=== PATIENT | male | born 1965 | race Caucasian/White ===

== ENCOUNTER → 2016-10-25 | Outpatient (CLI) | payer OTHER ==
[~2016-10-25] MED LIST: ALDACTONE25 MG PO; ASPIRIN ADULT L81 M1 PO; CATAPRES-TTS 10.1 MG PO; CEFUROXIME AXE250 MG PO; CIPRO500 MG PO; CLONIDINE0.2 MG PO; COREG25 MG PO; COUMADIN5 M2 PO; Catapres-Tts 10.1 MG PO; ELIQUIS5 M1 PO; GLYBURIDE5 MG PO; HYDRALAZINE HYD50 MG PO; IMDUR SA60 M1 PO; LANOXIN0.125 MG PO; LANOXIN0.25 MG PO; LANTUS100 U/ML SC; LASIX20 MG PO; LASIX40 MG PO; LOPRESSOR25 MG PO; LOPRESSOR50 MG PO; MEDI-FIRST ASP325 MG PO; METOPROLOL50 MG PO; NORVASC2.5 MG PO; PRADAXA150 MG PO; PRINIVIL5 MG PO; TOPROL XL100 MG PO; TOPROL XL50 M1 PO; VALIUM10 MG PO; VICO75300 PO; VICODIN 5/500 505 MG PO; VITAMIN D50000 I2 PO; XARELTO10 PO; ZESTRIL40 MG; ZESTRIL40 MG PO
[2016-10-25 13:15] LABS: HEMOGLOBIN 15.2 g/dl (14.0-18.0); MEAN CORPUSCULAR HGB 29.1 pg (27.0-31.0); MEAN CORPUSCULAR HGB CONC 33.8 g/dl (33.0-37.0); MEAN PLATELET VOLUME 10.6 fl (9.6-12.3); PLATELET COUNT AUTOMATED 140 10*3/uL (130-400); RED BLOOD COUNT 5.23 10*6/uL (4.50-5.90); RED CELL DISTRI WIDTH 14.9 % (0-14.5)
[2016-10-25 13:34] LABS: BASOPHIL # 0.3 10*3/uL (0-0.1); BASOPHILS 2 % (0-1); EOSINOPHIL # 0.1 10*3/uL (0-0.4); EOSINOPHILS 1 % (1-4); LYMPHOCYTE # 1.2 10*3/uL (1.3-4.4); MONOCYTE # 0.9 10*3/uL (0.1-1.0); NEUTROPHIL # 10.5 10*3/uL (2.3-7.9); NEUTROPHILS 81 % (47-73); PLATELET SUFFICIENCY NORMAL (NORMAL); ROULEAUX SLIGHT; TOTAL CELLS COUNTED 100 #CELLS
[2016-10-26 06:16] LABS: TOTAL PROTEIN, SERUM 7.6 g/dL (6.0-8.5)
[2016-10-26 15:09] LABS: A/G RATIO 0.9 (0.7-1.7); ALBUMIN 3.7 g/dL (2.9-4.4); ALPHA-1-GLOBULIN 0.2 g/dL (0.0-0.4); BETA GLOBULIN 1.5 g/dL (0.7-1.3); GAMMA GLOBULIN 1.5 g/dL (0.4-1.8); GLOBULIN, TOTAL 3.9 g/dL (2.2-3.9); M-SPIKE Not Observed g/dL (Not Observed)
[2016-10-26 16:11] LABS: ALBUMIN, URINE 65.8 % (.); GAMMA GLOBULIN, URINE 14.4 % (.); M-SPIKE, % Not Observed % (Not Observed)
[2016-10-26 17:13] LABS: HLA CLASS 1 ANTIBODY Negative (Negative); IIb/IIIa ANTIBODY Negative (Negative); Ia/IIa ANTIBODY Positive (Negative)
[2016-10-28 17:09] LABS: PLT ASSOCIATED ANTI-la/lla Negative (Negative); PLT ASSOCIATED ANTI-llb/llla Negative (Negative)
== END | disposition home or self-care (01) ==
LOC: LAB 12:38
PROVIDERS: Internal Medicine Hematology & Oncology
DX: D69.6 Thrombocytopenia, unspecified (principal)

== ENCOUNTER 2016-11-22 18:50 | Inpatient (IN) | payer OTHER ==
[~2016-11-22] VITALS: Ht 187.9 cm; Wt 115.8 kg
[2016-11-22] VITALS (7 sets, daily range): BP systolic 122–166; BP diastolic 66–91
--- NOTE | ~2016-11-22 | PR ---
[place], [place] PROGRESS NOTE NAME: NATASHA FERRARO UNIT #: [id number] ROOM: 520 DOCTOR: DINORA GUILLEN MD BIRTHDATE: [birth year] DOS: SUBJECTIVE: The patient is quite sleepy this morning. He states that he did not get much rest, appears to mildly short of breath. OBJECTIVE: VITAL SIGNS: Graphic trend shows a pressure of 112/64, pulse of 66, respirations 18, temperature 98.2, T-max of 102.9 yesterday at 4:00 in the evening. LUNGS: Diminished breath sounds. No wheezes heard. HEART: Irregular heart rate in the 80s-90s. ABDOMEN: Obese. EXTREMITIES: Without any edema and cold. LABORATORY DATA: This morning shows a BMP, glucose of 379, BUN 41, creatinine 3.10. Sodium 134, potassium 3.7, chloride 100, bicarbonate 22. WBC count is 16.6, hemoglobin 12.5, hematocrit 38.6, platelets 110. Blood culture shows gram-negative bacilli, no identification is available. CT of the abdomen and pelvis showed hydronephrosis, bilateral calcification, nonobstructive stones and cholelithiasis. ASSESSMENT AND PLAN: 1. The patient with multiple medical problems. He has chronic atrial fibrillation and severe cardiomyopathy who presents with fever and elevated white cell count with sepsis. Blood cultures now positive for gram-negative bacteria, bacilli and we do not have identification yet. 2. History of mitral valve replacement. The possibility is that he has developed endocarditis. 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 3. Acute kidney injury. His GFR 34 on admission has worsened to 21. So, we will avoid all nephrotoxic medications. Calculate antibiotic dosage according to creatinine clearance. Nephrology consultation will be obtained. 4. Type 2 diabetes mellitus, insulin-dependent, poorly controlled, not very compliant with his diet. His blood sugars have been in the high 300. Adjustments in medications to be made. [place], [place] PROGRESS NOTE NAME: NATASHA FERRARO UNIT #: [id number] ROOM: 520 DOCTOR: DINORA GUILLEN MD BIRTHDATE: [birth year] DINORA GUILLEN MD CM:PNCAMILLA [id number] DINORA GUILLEN MD 11/25/16 1539 interface
--- NOTE | ~2016-11-22 | PR ---
[place], [place] PROGRESS NOTE NAME: NATASHA FERRARO UNIT #: [id number] ROOM: 520 DOCTOR: YENY ALFARO MD BIRTHDATE: [birth year] DOS: 11/26/2016 SUBJECTIVE: The patient was seen in followup of acute kidney injury. His creatinine yesterday did not change, but he had received his lisinopril on the prior to me seeing him. It has since been discontinued as was his diuretics. His blood pressures have not been low anymore and he is now trending up slightly from the 120s to 150s. His heart rate is still periodically elevated. He continues on Toprol, Imdur and his antibiotics are Levaquin and Zosyn. He is no longer on around the clock fluids or receiving any boluses. Again, his last dose of lisinopril 40 was on November 24, and he received his last dose of Motrin on November 23 as well as Aldactone and Lasix on the . His contrast exposure was also on the . OBJECTIVE: VITAL SIGNS: 98.7, 77-115, 22, 150s to 120s over 80s-90s, pulse ox 93% on 3 liters nasal cannula. GENERAL: The patient is chronically ill appearing, older appearing than his stated age, lying comfortably in bed, but deconditioned significantly. He is very weak, cannot stand up without excessive fatigue and shortness of breath, somnolent, but eyes open. He has just come back from a LETTY, so he had some sedative there as well. LUNGS: Decreased breath sounds at the bases. CARDIOVASCULAR: Regular rate, positive murmur, irregular rhythm. ABDOMEN: Soft, colostomy intact, no audible bruits. EXTREMITIES: Without cyanosis or clubbing or significant edema. SKIN: Without diffuse rashes or breakdown. NEUROLOGIC: No asterixis. No cranial nerve abnormalities. LABORATORY DATA AND DIAGNOSTICS: Reviewed in detail. Sodium 141, potassium 3.8, chloride 107, bicarb 24, BUN 38, creatinine 2.29, glucose 75, calcium 8.1, phosphorus 2.6, magnesium 1.9, albumin 2.1. ASSESSMENT AND PLAN: Acute kidney injury. This is likely sepsis mediated acute tubular necrosis with possible contrast induced nephropathy exacerbated by NSAID use, ROBERT inhibitor and diuretics. For now, lisinopril and diuretics have been held, no further NSAIDs have been given and no further contrast has been given. Renal function is returning close to his prior baseline, which was CKD stage 3/4 with a baseline in the low to mid 2s. No further IV fluids are necessary at this time. We will probably resume his diuretics once today and monitor for any hypotension; if possible, then we can restart him on his lisinopril in the next 24 hours or so if labs remain stable. He has mild anemia, which has been fairly stable; diabetes control is coming under much better control and his urinary tract infection, which likely was the etiology of his severe sepsis is being treated with antibiotics, not sure whether he would need both antibiotics at this point, but I will defer to Dr. Sy. LETTY imaging will be followed up. If symptoms or bacteremia recurs, consideration for a HIDA scan given his CT may be a good thing to do because there was some cholelithiasis present as well. [place], [place] PROGRESS NOTE NAME: FERRARONATASHA UNIT #: [id number] ROOM: [facility] DOCTOR: YENY ALFRAO MD BIRTHDATE: [birth year] YENY ALFARO MD CM:PNTRANS [id number] YENY ALFAOR MD 11/26/16 2338 interface
--- NOTE | ~2016-11-22 | CON ---
[place], [place] REPORT OF CONSULTATION NAME: NATASHA FERRARO UNIT #: [id number] ROOM: 520 DOCTOR: SERA WRIGHT MD BIRTHDATE: [birth year] DOS: 11/23/2016 REASON FOR CONSULTATION: Atrial fibrillation with rapid ventricular response. HISTORY OF PRESENT ILLNESS: The patient is a 51-year-old man who does have a complex past medical history. The records are not complete, but the patient tells me that he had a severe infection in 2004. A PICC line was inserted and somehow resulted in damage to his mitral valve. This was replaced in 2004 at the [facility]. The patient has also developed a significant cardiomyopathy, but according to records I do have, this is a nonischemic cardiomyopathy. In another place in the old records, there is a reference to the fact that his mitral valve was replaced for endocarditis. As noted, the initial records are not currently available. In any case, he has had admissions for heart failure as well as atrial fibrillation with rapid ventricular response. The patient states he was doing reasonably well until recently when he began having problems with dysuria. In addition, he started having palpitations and chest discomfort. He also had nausea and vomiting. He came in to the hospital where he was found to be febrile and in atrial fibrillation with a rapid ventricular response. Blood cultures were obtained and thus far two of the blood culture bottles are growing gram-negative rods. We have been controlling his heart rate with diltiazem and he no longer has the chest discomfort, but he still has fever and a high white count. PAST MEDICAL HISTORY: Includes: 1. Hypertension. 2. Bioprosthetic mitral valve replacement done in 2004, apparently for endocarditis. The patient also reportedly had repair of an atrial septal defect during the same operation. 3. Type 2 diabetes mellitus. 4. Permanent atrial fibrillation. 5. Cardiomyopathy, presumed to be nonischemic in origin. 6. Chronic congestive heart failure due to left ventricular systolic and diastolic dysfunction. 7. Chronic renal failure. 8. Chronic elevation of troponin. REVIEW OF SYSTEMS: The patient denies diplopia. He is generally weak, but denies focal weakness. He denies loss of vision or speech. He has had fevers, chills and sweats. He has had nausea and vomiting. He has had a nonproductive cough. He denies hemoptysis or hematemesis. He denies any skin rashes. He has had chest pain as noted above, but this is improving. He denies abdominal pain. He denies change in bowel or bladder habits and denies blood in his stools or urine. He has had peripheral edema. The remainder of the review of systems is negative except as noted above. FAMILY HISTORY: Negative for early coronary disease. [place], [place] REPORT OF CONSULTATION NAME: NATASHA FERRARO UNIT #: [id number] ROOM: [facility] DOCTOR: SERA WRIGHT MD BIRTHDATE: [birth year] MEDICATIONS: Prior to admission, apixaban 5 mg b.i.d., cefuroxime 250 mg tablets b.i.d., clonidine 0.2 mg daily, diazepam 10 mg q. 6 hours p.r.n., digoxin 125 mcg daily, vitamin D2 50,000 units weekly, furosemide 40 mg daily, gabapentin 600 mg t.i.d., hydralazine 100 mg q. 8 hours, isosorbide mononitrate 60 mg daily, lisinopril 40 mg daily, metoprolol 75 mg b.i.d., spironolactone 25 mg daily and insulin, Lantus, 35 units at 5:00 p.m. ALLERGIES: The patient lists allergies to VILLARREAL PEPPERS, BEE STINGS, CODEINE, INFLUENZA VIRUS VACCINE AND PNEUMOCOCCAL VACCINE. SOCIAL HISTORY: The patient is and lives with his . He does not smoke or drink. He is unemployed and disabled. PHYSICAL EXAMINATION: GENERAL: Reveals an overweight white male who appears ill. VITAL SIGNS: Pulse is 100 and irregularly irregular, blood pressure is 138/76. He currently has a temperature of 99.9, but it has been as high as 100.1. HEENT: Normocephalic, atraumatic. Extraocular muscles are intact. Sclerae are clear. There is no scleral icterus or scleral hemorrhage. Pupils are round and reactive to light. The oral mucosa is moist. Tongue is midline. NECK: Supple. He has mild jugular distention with hepatojugular reflux present. Carotids are full and I heard no bruits. He had no neck or supraclavicular masses. LUNGS: Respirations were unlabored. His chest was clear with decreased breath sounds at the bases, but no wheezes or rales. CARDIOVASCULAR: His heart has an irregularly irregular rhythm. No obvious murmurs or gallops are present. ABDOMEN: Soft and normoactive without masses, organomegaly or bruits. EXTREMITIES: Showed 1+ edema bilaterally. Peripheral pulses are diminished in the feet. I reviewed his electrocardiogram, which showed atrial fibrillation with a controlled response. He has an indeterminate axis and nonspecific ST and T-wave changes. His most recent echocardiogram was on 01/19/2016 and was a technically difficult study, left ventricular chamber sizes were normal with ejection fraction of 35%. There was left atrial enlargement, mild right ventricular enlargement, moderate left ventricular hypertrophy and mild inferior vena cava dilation with decreased respiratory excursion. There was no pericardial effusion. Hemoglobin is 14.4 with hematocrit 43.1, there were 21,400 white cells and 122,000 platelets present. Sodium is 135, potassium 4.0, chloride 102, CO2 of 22, BUN 26, creatinine 2.08. IMPRESSIONS: 1. Atrial fibrillation with rapid ventricular response, most likely driven by the patient's systemic infection and sepsis. 2. Permanent atrial fibrillation. 3. History of valvular heart disease, status post mitral valve replacement in 2004. The patient apparently had endocarditis at that time. [place], [place] REPORT OF CONSULTATION NAME: NATASHA FERRARO UNIT #: [id number] ROOM: 520 DOCTOR: SERA WRIGHT MD BIRTHDATE: [birth year] 4. Gram-negative bacteremia, probably of urinary tract source. 5. Type 2 diabetes mellitus. 6. Hypertension. PLAN: Blood cultures have been ordered. An echocardiogram will be obtained. The patient is on antibiotics. For now, we will await the results of his blood cultures. If he appears to have an appropriate organism, we may consider a transesophageal echocardiogram in order to assess his valve leaflets and valve annulus for evidence of infection. For now, we will continue to treat his heart rate as needed with diltiazem to control the rate. This probably will remain a difficult endeavor until his infections come under control. I have discussed further management with the patient. 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 We thank Dr. Sharif for asking our advice regarding management of this patient. SERA WRIGHT MD CM:CONSTR:REPORT OF CONSULTATION 1314 11/24/16 0050 interface
--- NOTE | ~2016-11-22 | PR ---
[place], [place] PROGRESS NOTE NAME: NATASHA FERRARO UNIT #: [id number] ROOM: 520 DOCTOR: DINORA GUILLEN MD BIRTHDATE: [birth year] DOS: SUBJECTIVE: The patient states that he feels 100% better than on admission. Does not have any new complaints. Denies any shortness of breath or chest pains. OBJECTIVE: VITAL SIGNS: Blood pressure is 133/99, pulse of 87, respirations 22, temperature 98, T max of 100.7 at 1659 on November 24. LUNGS: Diminished breath sounds. HEART: Irregular, heart rate in the low 100s. ABDOMEN: Obese. EXTREMITIES: Trace edema. LABORATORY DATA: Blood cultures shows Gram-negative bacilli, no identification yet. Urine culture shows Gram-negative bacteria, no identification yet. No labs available yet either. ASSESSMENT AND PLAN: 1. Acute kidney injury, multifactorial, possibly acute tubular necrosis. Discussed with Dr. Rothman yesterday. The patient is on slow IV hydration. 2. Urosepsis with Gram-negative bacilli on IV antibiotics. Once we have identification and sensitivities, we will decide on changing medicines. 3. Type 2 diabetes mellitus, insulin-dependent. Blood sugar 177 this morning. We will increase insulin further. 4. History of mitral valve replacement. The possibility is that the patient may have valve. Echocardiogram does not show any evidence of any vegetations, but prosthetic valve stenosis was noted on the echo. The patient may need further consultation with thoracic surgery. 5. Cardiomyopathy with chronic atrial fibrillation. Heart rate controlled on low dose of diltiazem and on Eliquis. DINORA GUILLEN MD CM:PNTRANS [id number] DINORA GUILLEN MD 11/25/16 0903 interface
--- NOTE | ~2016-11-22 | PR ---
[place], [place] PROGRESS NOTE NAME: NATASHA FERRARO UNIT #: [id number] ROOM: 520 DOCTOR: BERNADETTE KEYS,ARA BIRTHDATE: [birth year] DOS: 11/24/2016 CARDIOLOGY FOLLOWUP VISIT NOTE REASON FOR VISIT: History of mitral valve replacement, cardiomyopathy. HISTORY OF PRESENT ILLNESS: The patient is feeling much better since admission. Still has some low grade fever. Denies any chest pain or palpitations. Complaining of being tired and weak. No orthopnea. No nausea, vomiting or diarrhea. REVIEW OF SYSTEMS: Review of the 8 systems negative except as mentioned above. RHYTHM STRIPS: The patient is in atrial fibrillation with occasional rapid ventricular rate. PHYSICAL EXAMINATION: VITAL SIGNS: Blood pressure 115/75, pulse 110, respiratory rate 16. GENERAL: Alert, comfortable, in no acute distress. HEENT: Pupils are round and equal. No jaundice. NECK: Supple. No distended neck veins. No carotid bruits. CHEST: Symmetrical, nontender. LUNGS: Few scattered rhonchi. HEART: Irregularly irregular. Grade 1/6 systolic murmur. ABDOMEN: Benign. Bowel sounds normal. Obese. The patient had a colostomy. EXTREMITIES: Showed trace edema. Distal pulses are palpable. SKIN: Warm and dry. No cyanosis, no clubbing. NEUROLOGIC: The patient is alert, oriented. No focal neurologic deficit. MEDICATIONS: Reviewed. DIAGNOSTIC TESTS: Review of the tests reviewed as available. IMPRESSION: 1. Chronic atrial fibrillation with rapid ventricular rate. Titrate IV Cardizem, continue his metoprolol. 2. Nonischemic cardiomyopathy, ejection fracture of 45%. Recent echo. 3. History of mitral valve replacement in 2004 with a bioprosthetic valve with adequate function by echo. 4. Bacteremia and possible sepsis. 5. Chronic kidney disease. RECOMMENDATIONS: Titrate Cardizem for rate control. Continue his Eliquis for anticoagulation. I would recommend transesophageal echocardiogram on Saturday to rule out endocarditis due to his bacteremia, history of possible bioprosthetic mitral valve. Risks and complications discussed with the patient and his , who is at bedside and all questions were answered. [place], [place] PROGRESS NOTE NAME: NATASHA FERRARO UNIT #: [id number] ROOM: 520 DOCTOR: ARA FLEMING MD BIRTHDATE: [birth year] ARA FLEMING MD CM:MELITON [id number] ARA FLEMING MD 11/25/16 1104 interface
--- NOTE | ~2016-11-22 | WRIGHTHP ---
[place], [place] PATIENT HISTORY AND PHYSICAL EXAM NAME: NATASHA FERRARO [facility] #: [id number] UNIT #: [id number] ROOM: 520 DOCTOR: FIFI BURNETT MD BIRTHDATE: [birth year] DOS: 11/23/2016 HISTORY OF PRESENT ILLNESS: The patient is a 51-year-old gentleman with a past medical history patient with systolic type congestive heart failure history, chronic atrial fibrillation, benign essential hypertension, cardiomyopathy with left ventricular ejection fraction of 20%-25%, noncompliant with treatment, poor insight into medical problems, type 2 diabetes mellitus for the patient takes insulin, generalized anxiety disorder, chronic renal failure, chronic kidney disease stage 4. Home meds were metoprolol, Imdur, hydralazine, diazepam, lisinopril, vitamin D, digoxin, clonidine, Lasix, Eliquis. The patient presented to the Emergency Department at [facility] and was seen by Dr. Imtiaz Casper with feeling sick, increasing cough, which was productive and some burning after urination, which started a day before admission. The patient was evaluated in the Emergency Department and found to be in chronic atrial fibrillation with rapid ventricular response and also a urinary tract infection with leukocytosis. The patient is also in acute CHF on chest x-ray. The patient admitted to a monitored bed and cardiology was consulted. After admission, the patient is starting to feel better, although he complains of severe anxiety and panic episodes off and on. No dizziness or fainting episodes. No significant chest pains, no other GI or urinary symptoms. REVIEW OF SYSTEMS: LUNGS: The patient has some shortness of breath, no wheezing. GASTROINTESTINAL: No nausea, vomiting, diarrhea or constipation. CARDIOVASCULAR: No chest pains, but he did have palpitations. FAMILY HISTORY: Noncontributory. SOCIAL HISTORY: Denies smoking cigarettes, alcohol or drug abuse. FAMILY HISTORY: Noncontributory. HOME MEDICATIONS: Insulin, hydroxyzine, spironolactone, lisinopril, Imdur, furosemide, diltiazem, hydralazine, metoprolol. ALLERGIES: CODEINE, BEE STINGS, FLU VACCINE, INSULIN and PNEUMOCOCCAL VACCINES. PHYSICAL EXAMINATION: GENERAL: Alert and oriented x 3, in no visible distress, generalized weakness. HEENT AND NECK: Extraocular movements are intact. Sclerae are anicteric. Oral mucosa is moist and clean. No obvious facial weakness. Neck is supple without any lymphadenopathy. No thyromegaly. No JVD. No carotid arterial bruits. LUNGS: Clear to auscultation. No wheezing. No rhonchi. CARDIOVASCULAR SYSTEM: The patient's heart rate was irregularly irregular in rate and rhythm. ABDOMEN: Soft, nontender. No obvious organomegaly. Bowel sounds are present. No obvious herniation. EXTREMITIES: Without significant cyanosis or edema. Warm to touch. CENTRAL NERVOUS SYSTEM: Alert and oriented x 3. Cranial nerves II-XII are intact. Speech is normal. The patient is able to move all extremities. Normal [place], [place] PATIENT HISTORY AND PHYSICAL EXAM NAME: NATASHA FERRARO UNIT #: [id number] ROOM: [facility] [place] DOCTOR: FIFI BURNETT MD BIRTHDATE: [birth year] muscle strength. Deep tendon reflexes are equal on both sides. Plantars were downgoing. LABORATORY DATA: White cell count improved to 21,000 from 24,000 at admission, BUN and creatinine 26 and 2, otherwise normal serum electrolytes. Cardiac enzymes elevated . Cardiology aware of. The patient apparently has chronically elevated troponin I levels. IMPRESSION: 1. The patient's chronically elevated troponin I levels are being followed by ehs teacher, Dr. Cisco Frazier. 2. Chronic atrial fibrillation with rapid ventricular response, is being treated with beta blockers, calcium channel blockers and patient is being closely monitored. 3. Acute congestive heart failure, systolic type, to be followed by Cardiology. The patient is being diuresed. His breathing is improving. 4. Benign essential hypertension. We will continue treatment and monitor blood pressures. 5. Type 2 diabetes mellitus, insulin requiring. Blood sugars to be monitored and treated. The patient is noncompliant with his diet. He is being kept on no concentrated sweet diet in the hospital. 6. Chronic atrial fibrillation. The patient is anticoagulated with apixaban. FIFI BURNETT MD CM:HISPHYS:PATIENT HISTORY AND PHYSICAL EXAMINATION [id number] FIFI BURNETT MD 11/23/16 1301 interface
--- NOTE | ~2016-11-22 | PR ---
[place], [place] PROGRESS NOTE NAME: NATASHA FERRARO UNIT #: [id number] ROOM: 520 DOCTOR: DINORA GUILLEN MD BIRTHDATE: [birth year] DOS: 11/26/2016 SUBJECTIVE: The patient is doing fine without any complaints this morning. He appears slightly short of breath more than his usual. OBJECTIVE: VITAL SIGNS: Blood pressure is 143/79, pulse of 90, respirations 20, temperature 98.7. LUNGS: Clear. HEART: Irregular heart rate in the low 80s. ABDOMEN: Obese. EXTREMITIES: Without any edema. LABORATORY DATA: Shows a BUN of 38, creatinine 2.29, GFR 30. Sodium 141, potassium 3.8. ASSESSMENT AND PLAN: 1. Sepsis with bacteremia, Klebsiella pneumoniae, on IV antibiotics, possibly from an underlying urinary tract infection. 2. History of mitral valve replacement for LETTY today to make sure that he does not have subacute bacterial endocarditis. 3. Acute kidney injury from acute tubular necrosis from contrast. The patient's kidney functions have improved. We will discontinue IV fluids. 4. Adult failure to thrive. The patient may require a short-term placement for continued IV antibiotics and PICC line will need to be placed. DINORA GUILLEN MD CM:PNTRANS [id number] DINORA GUILLEN MD 11/26/16 1703 interface
--- NOTE | ~2016-11-22 | PR ---
[place], [place] PROGRESS NOTE NAME: NATASHA FERRARO UNIT #: [id number] ROOM: 520 DOCTOR: ARA FLEMING MD BIRTHDATE: [birth year] DOS: 11/25/2016 REASON FOR VISIT: Cardiomyopathy and valvular heart disease. HISTORY OF PRESENT ILLNESS: The patient is feeling better, less short of breath and less fatigued. Still having some "low-grade fever." Denies any chest pains, palpitations. No PND, no orthopnea. No palpitations, no dizziness. REVIEW OF SYSTEMS: Review of the 8 systems negative except as mentioned above. RHYTHM STRIPS: The patient in atrial fibrillation with occasional rapid ventricular rate. PHYSICAL EXAMINATION: VITAL SIGNS: Blood pressure /75, pulse 110, respiratory rate 18. GENERAL: Alert, comfortable, in no acute distress. HEENT: Pupils are round and equal. No jaundice. Tongue was moist and pharynx was clear. NECK: Supple. No distended neck veins. No carotid bruits. CHEST: Symmetrical, nontender. LUNGS: Few scattered rhonchi, diminished at bases. HEART: Irregularly irregular. No S3. Grade 1/6 systolic murmur. ABDOMEN: Benign, obese. Bowel sounds normal. Colostomy bag present. EXTREMITIES: Showed trace edema. Distal pulses are palpable. SKIN: Warm and dry. No cyanosis, no clubbing. NEUROLOGIC: Alert, oriented. No focal neurologic deficit. RECTAL: Deferred. MEDICATIONS: Reviewed as available. LABORATORY DATA: Reviewed as available. IMPRESSION: 1. Nonischemic cardiomyopathy. 2. Status post mitral valve . 3. Bacteremia with gram-negative rods. 4. Chronic kidney disease. 5. Chronic atrial fibrillation with rapid ventricular rate. 6. Hypertension. 7. Obesity. 8. Diabetes type 2. RECOMMENDATIONS: 1. Increase the Toprol to 100 mg twice a day. 2. Discontinue IV Cardizem. He is scheduled for LETTY tomorrow to rule out endocarditis due to bacteremia and history of prosthetic mitral valve. 3. There is no family at bedside at the time of my examination. [place], [place] PROGRESS NOTE NAME: NATASHA FERRARO UNIT #: [id number] ROOM: 520 DOCTOR: ARA FLEMING MD BIRTHDATE: [birth year] ARA FLEMING MD CM:AFSANEHTRANS [id number] ARA FLEMING MD 11/25/16 2157 interface
--- NOTE | ~2016-11-22 | CON ---
[place], [place] REPORT OF CONSULTATION NAME: NATASHA FERRARO UNIT #: [id number] ROOM: 520 DOCTOR: YENY ALFARO MD BIRTHDATE: [birth year] DOS: 11/24/2016 NEPHROLOGY CONSULTATION. REASON FOR CONSULTATION: Acute kidney injury. REQUESTING PHYSICIAN: Cindy Sy. HISTORY OF PRESENT ILLNESS: The patient is a pleasant 51-year-old gentleman known to me from past consultation in the hospital. He has a history of stage 3 chronic kidney disease with a baseline creatinine of around 1.6-1.9 from [id number]. He developed acute kidney injury and I saw him in the hospital in February 2014. This was in the context of his known cardiac disease and ATN. He does have a history of mitral valve replacement and has followed at [facility] in the past for this. He is admitted to the hospital with acute onset of sepsis and fever with temperatures as high as 103 yesterday. He was given ice packs and Motrin yesterday. He also underwent a CT with and without contrast of the abdomen and pelvis. This was to look for possible pyelonephritis and/or diverticulitis. It was negative for any hydronephrosis. There were some calcifications versus nonobstructing stones, uncomplicated cholelithiasis and a left lower quadrant colostomy without any bowel obstruction, herniated loops or focal inflammatory distress. He has been having some periodic dental pain according to his who provides most of the history. He has also had some intermittent diarrhea since being admitted to the hospital, but nothing on a regular basis prior to coming in to the hospital. His white blood cell count was noted to be 24,000 on 11/22/2016 in the ER, and has slowly trended down to 21 and 16.6 on successive days. His initial urinalysis was positive for 3+ blood, 3+ protein, positive nitrites, positive 1+ bilirubin, glucose and bacteria with several wbc's. Blood cultures, however, were obtained and have started growing gram-negative rods with the sensitivities and speciation not yet identified. There is a urine culture that was obtained, looks like in the ER after the blood cultures, also growing gram-negative bacilli. There was a recheck 1 set of blood culture, I believe, from yesterday afternoon, which is no growth so far. His chest radiograph showed mild congestive changes. He had an echocardiogram yesterday read by Dr. Frazier showing mildly dilated left ventricle with normal wall thickness and normally well seated bioprosthetic mitral valve, EF of 45%. There is a possibility of some prosthetic valve stenosis, but it is not clear. No overt vegetations were seen at that time. Currently, he has been given diltiazem in a fashion for atrial fibrillation with rapid ventricular response by cardiology. He is currently on 5 mg an hour. He again is spiking temperatures. He was given 250 mL saline bolus yesterday, which seemed to help control his heart rate a little bit, he has been given some Vistaril and sedatives to help with some rest as well, also seems to be helping a bit. PAST MEDICAL HISTORY: Significant for chronic congestive heart failure, systolic and diastolic; CKD stage 3; diabetes; hypertension; mitral valve replacement; atrial fibrillation; colostomy; past diverticulitis; gallstones without cholecystitis. [place], [place] REPORT OF CONSULTATION NAME: NATASHA FERRARO UNIT #: [id number] ROOM: [facility] DOCTOR: YENY ALFARO MD BIRTHDATE: [birth year] FAMILY HISTORY: Negative for renal failure. SOCIAL HISTORY: He is , his is a nurse. He is currently disabled. ALLERGIES: He has multiple allergies noted to PEPPERS, BEE STINGS, CODEINE, FLU VACCINE and PNEUMOCOCCAL VACCINE. HOME MEDICATIONS: Reviewed from the electronic medical record, pertinents include lisinopril, Lasix, spironolactone, which the latter two were discontinued this morning, but he did receive his lisinopril this morning. He also received ibuprofen yesterday for the fevers mentioned above. PHYSICAL EXAMINATION: VITAL SIGNS: T-max 102.9, T current 100.7, blood pressures are 110s to 140s over 60s to 70s, heart rates are in the 50s to 120s, respiratory rate 18-20, pulse ox 93-97% on 3 liters nasal cannula. GENERAL: He is awake, but somnolent and lethargic, ill appearing. He is not having any work of breathing or respiratory distress. There is difficult to assess dental issues, does not seem to be point tender but again, difficult to assess. HEAD AND NECK: Sclerae are without significant icterus. NECK: Otherwise without JVD or lymphadenopathy and is supple. LUNGS: Fairly clear to auscultation bilaterally. CARDIOVASCULAR: Irregularly irregular with fast rate. No audible rub. EXTREMITIES: No lower extremities are without significant cyanosis, clubbing, or very significant edema. ABDOMEN: Soft, nontender, positive colostomy, some more loose stools lately with the antibiotics, perhaps. SKIN: Without diffuse rash or breakdown. NEUROLOGIC: Lethargy, no specific clonus or asterixis. LABORATORIES AND DIAGNOSTICS: Sodium 134, potassium 3.7, chloride 100, bicarbonate 22, BUN 41, creatinine 3.1 up from 2.05; glucose 379, down slightly from 491 yesterday, but still elevated. Calcium 7.8. White blood cell count 16.6, again down from 24; hemoglobin 12.5, down from 14.6; platelets 110, down from 137. No significant eosinophilia. Blood cultures positive. CT mentioned above. Echocardiogram mentioned above. Chest radiograph personally reviewed, some hilar fullness, but no significant pneumonia. ASSESSMENT AND PLAN: 1. Acute kidney injury. The etiology is most likely sepsis mediated acute tubular necrosis with possible contrast-induced nephropathy underlying this. Agree with discontinuation of diuretics and I also would discontinue lisinopril at this time. Given the fact that he was given lisinopril this morning, he is still hyperglycemic and potential for poor intake with insensible losses from high grade fevers, I will give him another 250 mL normal saline bolus and start him on 40 mL an hour. I do not want to significantly overload him and we will monitor his heart rate and ideally, this should start to improve. The source of his sepsis is not clear. Potential for right upper quadrant ultrasound may be needed but for now, we will follow up and assume that this is urinary in nature. [place], [place] REPORT OF CONSULTATION NAME: NATASHA FERRARO UNIT #: [id number] ROOM: 520 DOCTOR: YENY ALFARO MD BIRTHDATE: [birth year] Dr. Frazier and team plan to possibly do a LETTY on Saturday if necessary to evaluate his prosthetic mitral valve more closely. He has a mild hyponatremia, I suspect this will improve with gentle normal saline. Leukocytosis is slowly improving, monitor further cultures and anemia is mild and was potentially a mild hemoconcentrated state when he first arrived, follow for any signs of acute losses with the resumption of his anticoagulation. The patient is critically ill, low threshold for transferring to the ICU if atrial fibrillation continues to be difficult to control and bacteria and sepsis remains significant. For now, his lactate was normal, so we should be in acceptable shape for now. His diabetes is uncontrolled, deferred to Dr. Sy. Thank you very much for the kind consultation. Case was discussed with the family and the bedside nurse. YENY ALFARO MD CM:CONSTR:REPORT OF CONSULTATION 1710 11/24/16 9450 interface
[2016-11-22 19:41] LABS: HEMATOCRIT 43.6 % (42.0-52.0); HEMOGLOBIN 14.6 g/dl (14.0-18.0); MEAN CELL VOLUME 87.6 fl (80.0-94.0); MEAN CORPUSCULAR HGB 29.3 pg (27.0-31.0); MEAN CORPUSCULAR HGB CONC 33.5 g/dl (33.0-37.0); MEAN PLATELET VOLUME 10.4 fl (9.6-12.3); PLATELET COUNT AUTOMATED 137 10*3/uL (130-400); RED BLOOD COUNT 4.98 10*6/uL (4.50-5.90); RED CELL DISTRI WIDTH 14.6 % (0-14.5)
[2016-11-22 19:58] LABS: ALBUMIN 2.9 gm/dl (3.1-4.5); BILIRUBIN, TOTAL 2.1 mg/dl (0.2-1.0); TOTAL PROTEIN 7.3 gm/dL (6.4-8.2)
[2016-11-22 20:02] LABS: MONOCYTE # 3.6 10*3/uL (0.1-1.0); NEUTROPHIL # 19.4 10*3/uL (2.3-7.9); NEUTROPHILS 81 % (47-73); TOTAL CELLS COUNTED 100 #CELLS
[2016-11-22 20:03] LABS: PLATELET SUFFICIENCY LOW (NORMAL); POLYCHROMASIA SLIGHT
[2016-11-22 20:05] LABS: TROPONIN I 0.17 ng/ml (<0.045)
[2016-11-22] MEDS ORDERED: GABAPENTIN600 MG PO (21:13)
[2016-11-22 22:19] LABS: BILIRUBIN 1+ (NEGATIVE); BLOOD 3+ (NEGATIVE); CLARITY CLOUDY (CLEAR); COLOR YELLOW (YELLOW); GLUCOSE 2+ (NEGATIVE); KETONE TRACE (NEGATIVE); LEUKO ESTERASE TRACE (NEGATIVE); NITRITE POSITIVE (NEGATIVE); PROTEIN 3+ (NEGATIVE)
[2016-11-22 22:28] LABS: BACTERIA 1+; WBC 51-100 wbc/hpf (0-5)
[2016-11-22 22:29] LABS: URINE REFLEX COMMENT YES (NO)
[2016-11-23] VITALS (11 sets, daily range): BP systolic 110–148; BP diastolic 59–82
[2016-11-23 06:02] LABS: HEMATOCRIT 43.1 % (42.0-52.0); HEMOGLOBIN 14.4 g/dl (14.0-18.0); MEAN CORPUSCULAR HGB 29.4 pg (27.0-31.0); MEAN CORPUSCULAR HGB CONC 33.4 g/dl (33.0-37.0); MEAN PLATELET VOLUME 10.8 fl (9.6-12.3); PLATELET COUNT AUTOMATED 122 10*3/uL (130-400); RED CELL DISTRI WIDTH 14.6 % (0-14.5); WHITE BLOOD COUNT 21.4 10*3/uL (4.8-10.8)
[2016-11-23 07:28] LABS: BASOPHIL # 0.2 10*3/uL (0-0.1); BASOPHILS 1 % (0-1); LYMPHOCYTE # 0.2 10*3/uL (1.3-4.4); MONOCYTE # 2.4 10*3/uL (0.1-1.0); NEUTROPHIL # 18.6 10*3/uL (2.3-7.9); NEUTROPHILS 87 % (47-73); PLATELET SUFFICIENCY LOW (NORMAL); TOTAL CELLS COUNTED 100 #CELLS; TOXIC GRANULATION SLIGHT
[2016-11-24] VITALS (15 sets, daily range): BP systolic 100–152; BP diastolic 58–88
[2016-11-24 06:22] LABS: HEMATOCRIT 38.6 % (42.0-52.0); HEMOGLOBIN 12.5 g/dl (14.0-18.0); MEAN CELL VOLUME 89.6 fl (80.0-94.0); MEAN CORPUSCULAR HGB CONC 32.4 g/dl (33.0-37.0); MEAN PLATELET VOLUME 11.3 fl (9.6-12.3); PLATELET COUNT AUTOMATED 110 10*3/uL (130-400); RED BLOOD COUNT 4.31 10*6/uL (4.50-5.90); RED CELL DISTRI WIDTH 14.8 % (0-14.5); WHITE BLOOD COUNT 16.6 10*3/uL (4.8-10.8)
[2016-11-24 06:57] LABS: POTASSIUM 3.7 mmol/L (3.5-5.1)
[2016-11-24 06:59] LABS: LYMPHOCYTE # 0.7 10*3/uL (1.3-4.4); NEUTROPHIL # 12.9 10*3/uL (2.3-7.9); NEUTROPHILS 78 % (47-73); TOTAL CELLS COUNTED 100 #CELLS
[2016-11-24 07:00] LABS: PLATELET SUFFICIENCY LOW (NORMAL)
[2016-11-25] VITALS (9 sets, daily range): BP systolic 110–147; BP diastolic 61–99
[2016-11-25 06:56] LABS: HEMATOCRIT 39.5 % (42.0-52.0); HEMOGLOBIN 12.5 g/dl (14.0-18.0); MEAN CELL VOLUME 89.4 fl (80.0-94.0); MEAN CORPUSCULAR HGB 28.3 pg (27.0-31.0); MEAN CORPUSCULAR HGB CONC 31.6 g/dl (33.0-37.0); PLATELET COUNT AUTOMATED 122 10*3/uL (130-400); RED BLOOD COUNT 4.42 10*6/uL (4.50-5.90); RED CELL DISTRI WIDTH 14.9 % (0-14.5); WHITE BLOOD COUNT 14.6 10*3/uL (4.8-10.8)
[2016-11-25 07:15] LABS: BASOPHIL # 0.4 10*3/uL (0-0.1); BASOPHILS 3 % (0-1); EOSINOPHIL # 0.3 10*3/uL (0-0.4); EOSINOPHILS 2 % (1-4); LYMPHOCYTE # 0.3 10*3/uL (1.3-4.4); MONOCYTE # 1.3 10*3/uL (0.1-1.0); NEUTROPHIL # 12.3 10*3/uL (2.3-7.9); NEUTROPHILS 84 % (47-73); PLATELET SUFFICIENCY LOW (NORMAL); TOTAL CELLS COUNTED 100 #CELLS
[2016-11-25 07:35] LABS: ALBUMIN 2.2 gm/dl (3.1-4.5); MAGNESIUM 1.9 mg/dL (1.5-2.1); PHOSPHOROUS 3.3 mg/dL (2.5-4.9); POTASSIUM 3.7 mmol/L (3.5-5.1)
[2016-11-26] VITALS (13 sets, daily range): BP systolic 128–172; BP diastolic 65–106
[2016-11-26 06:22] LABS: ALBUMIN 2.1 gm/dl (3.1-4.5); MAGNESIUM 1.9 mg/dL (1.5-2.1); PHOSPHOROUS 2.6 mg/dL (2.5-4.9); POTASSIUM 3.8 mmol/L (3.5-5.1)
[2016-11-27] VITALS (11 sets, daily range): BP systolic 132–167; BP diastolic 71–104
[2016-11-27 06:15] LABS: ALBUMIN 2.1 gm/dl (3.1-4.5); PHOSPHOROUS 1.8 mg/dL (2.5-4.9); POTASSIUM 4.2 mmol/L (3.5-5.1)
[2016-11-27] MEDS ORDERED: CIPRO500 MG PO ×2 (12:31→16:27)
[2016-11-27] MEDS ORDERED: LEVEMIR10 ML SC (16:25)
[2016-11-27] MEDS ORDERED: METOPROLOL SUC100 M1 PO (16:25)
[2016-11-27] MEDS ORDERED: CARDIZEM CD180 MG PO (16:48)
== END 2016-11-27 17:24 | disposition home or self-care (01) | DRG 871 ==
LOC: ED 18:50 → EDHOLD 22:45 → 5E 22:45
PROVIDERS: Emergency Medicine; Internal Medicine; Internal Medicine Nephrology
DX: A41.50 Gram-negative sepsis, unspecified (principal); E43 Unspecified severe protein-calorie malnutrition; N17.0 Acute kidney failure with tubular necrosis; I50.43 Acute on chronic combined systolic (congestive) and diastolic (congestive) heart failure; I42.9 Cardiomyopathy, unspecified; E11.22 Type 2 diabetes mellitus with diabetic chronic kidney disease; I48.2 Chronic atrial fibrillation; N39.0 Urinary tract infection, site not specified; I13.0 Hypertensive heart and chronic kidney disease with heart failure and stage 1 through stage 4 chronic kidney disease, or unspecified chronic kidney disease; E87.1 Hypo-osmolality and hyponatremia; N18.3 Chronic kidney disease, stage 3 (moderate); E66.9 Obesity, unspecified; B96.1 Klebsiella pneumoniae [K. pneumoniae] as the cause of diseases classified elsewhere; R62.7 Adult failure to thrive; D64.9 Anemia, unspecified; N14.1 Nephropathy induced by other drugs, medicaments and biological substances; T50.8X5A Adverse effect of diagnostic agents, initial encounter; K80.20 Calculus of gallbladder without cholecystitis without obstruction; E11.65 Type 2 diabetes mellitus with hyperglycemia; I25.10 Atherosclerotic heart disease of native coronary artery without angina pectoris; Z95.2 Presence of prosthetic heart valve; Z68.30 Body mass index [BMI] 30.0-30.9, adult; Z91.018 Allergy to other foods; Z88.5 Allergy status to narcotic agent; Z88.7 Allergy status to serum and vaccine; Z91.030 Bee allergy status; Z79.899 Other long term (current) drug therapy; Z93.3 Colostomy status; Z83.6 Family history of other diseases of the respiratory system; Z91.19 Patient's noncompliance with other medical treatment and regimen; Z88.8 Allergy status to other drugs, medicaments and biological substances; I25.2 Old myocardial infarction; Z87.01 Personal history of pneumonia (recurrent); Z91.11 Patient's noncompliance with dietary regimen; E55.9 Vitamin D deficiency, unspecified

== ENCOUNTER 2017-10-29 09:47 | Inpatient (IN) | payer OTHER ==
[2017-10-29] VITALS (7 sets, daily range): BP systolic 142–172; BP diastolic 70–122
[~2017-10-29] VITALS: Ht 185.4 cm; Wt 103.1 kg
--- NOTE | ~2017-10-29 | DS ---
[place], [place] DISCHARGE SUMMARY NAME: [id number] UNIT #: [id number] ROOM: 427 DOCTOR: DINORA GUILLEN MD BIRTHDATE: [birth year] DOS: 10/31/2017 HISTORY OF PRESENT ILLNESS AND HOSPITAL COURSE: The patient is 52 years old, very well known to us. The patient has had a lump in the left side of his neck for a few days now. Because of continued pain, he decided finally to come into the Emergency Room where he was evaluated and a CT of the neck was done, which showed an infected sebaceous cyst with significant lymphadenopathy and fat infiltration, so he was admitted being a poorly controlled diabetic with a high likelihood of spreading. After admission, the patient was placed on IV antibiotics. Consultation with Dr. Sim was obtained. Over the next 2 days, the patient's swelling has significantly subsided. The area affected also has shrunk. It is less indurated. He does not have any fever and his white cell count is normalized. He is able to move his neck without any issues. There are no plans to do I and D. So, the plan is to discharge him to home today to be followed up as an outpatient. His blood sugars in the hospital are in the 200s and some adjustments in medications will be made. He was on Ancef and vancomycin here. DISCHARGE MEDICATIONS: He will be placed on Cipro 500 b.i.d. for 7 days and doxycycline 100 mg twice a day for 7 days when he is discharged along with home medications. The only new change made is that his insulin dose will be changed to 60 units and he will be placed on glipizide 10 mg daily. DINORA GUILLEN MD CM:DISCHARG [id number] DINORA GUILLEN MD 11/07/17 1433 interface
--- NOTE | ~2017-10-29 | PR ---
[place], [place] PROGRESS NOTE NAME: NATASHA FERRARO UNIT #: [id number] ROOM: 427 DOCTOR: DINORA GUILLEN MD BIRTHDATE: [birth year] DOS: 10/31/2017 SUBJECTIVE: The patient is doing fine without any complaints. Appreciate Dr. Sim's input. OBJECTIVE EXAMINATION: GENERAL: He is awake and alert and oriented. LUNGS: Diminished breath sounds, clear. HEART: Irregular. ABDOMEN: Obese. EXTREMITIES: Without any edema. Left side of the neck less induration noted and the area is much smaller. ASSESSMENT AND PLAN: Infected sebaceous cyst, lymphadenopathy in a poorly controlled diabetic with high risk of spread. The patient is currently improving. Dr. Sim did see the patient and he did not recommend I and D at this present time and since the swelling is much smaller, his white cell count is normal and we will try to discharge him to home today. DINORA GUILLEN MD CM:PNTRANS [id number] DINORA GUILLEN MD 10/31/17 2343 interface
--- NOTE | ~2017-10-29 | WRIGHTHP ---
[place], [place] PATIENT HISTORY AND PHYSICAL EXAM NAME: NATASHA FERRARO [facility] #: [id number] UNIT #: [id number] ROOM: 427 DOCTOR: DINORA GUILLEN MD BIRTHDATE: [birth year] DOS: 10/29/2017 HISTORY OF PRESENT ILLNESS: This patient is 52 years old, patient noticed swelling of the left side of his neck about a week ago. It continued to get worse with increasing pain and swelling, so finally decided to come into the Emergency Room. He denied having any chest pains, palpitations, not have any fever or chills, does not have any abdominal pain, nausea, any emesis. The patient says it was quite painful to touch. He arrived to the Emergency Room, a soft tissue neck was done, which showed significant lymphadenopathy in the posterior cervical and supraclavicular lymph nodes as well as a 2 cm inflamed area, which could be an infected sebaceous cyst. This morning, the patient does not have much pain. He says that it is much improved since yesterday. His white cell count has also normalized. PAST MEDICAL HISTORY: Significant for: 1. Poorly controlled diabetes mellitus. 2. Chronic atrial fibrillation, on long-term use of anticoagulants. 3. Chronic kidney disease. 4. Benign hypertension. 5. Generalized anxiety disorder. 6. Chronic kidney disease. MEDICATIONS: He is on are Eliquis 5 mg b.i.d., clonidine 0.2 daily, Valium 10 q. 6 p.r.n., digoxin 0.125 daily, diltiazem 180 daily, vitamin D 50,000 units once a week, Lasix 60 daily, gabapentin 600 t.i.d., [place] 7.5 q. 8, lisinopril 40 daily, metoprolol 100 b.i.d., spironolactone 25 daily, insulin 50 units. SOCIAL HISTORY: Nonsmoker, does not use any alcohol. PHYSICAL EXAMINATION: GENERAL: He is awake and alert and oriented. VITAL SIGNS: Blood pressure is 147/72, pulse of 70, respirations 16, temperature 97.5. LUNGS: Diminished breath sounds, clear. HEART: Irregular. ABDOMEN: Obese. EXTREMITIES: Without any edema. NECK: Large area of induration on the left side without any evidence of fluctuation. I did not feel any lymph glands this morning. ASSESSMENT AND PLAN: 1. Infected sebaceous cyst with induration, most likely an abscess. The patient will have a surgical consultation obtained for possible I and D. The patient has been placed on IV antibiotics. White cell count was elevated on admission. This has come down indicating improvement. 2. Type 2 diabetes with blood sugars fairly controlled here. He has extremely poor control at home. 3. Cardiomyopathy with chronic atrial fibrillation. Continue home meds. No evidence of congestive heart failure. [place], [place] PATIENT HISTORY AND PHYSICAL EXAM NAME: NATASHA FERRARO UNIT #: [id number] ROOM: [facility] DOCTOR: DINORA GUILLEN MD BIRTHDATE: [birth year] DINORA GUILLEN MD CM:HISPHYS:PATIENT HISTORY AND PHYSICAL EXAMINATION 0838 2 DINORA GUILLEN MD 10/30/17 0902 interface
[~2017-10-29 09:47] MED LIST changes: +CARDIZEM CD180 MG PO; +GABAPENTIN600 MG PO; +LEVEMIR10 ML SC; +METOPROLOL SUC100 M1 PO
[2017-10-29 10:46] LABS: BASO # 0.1 10*3/uL (0.0-0.1); BASO % 0.9 % (0.0-1.0); EOS # 0.5 10*3/uL (0.0-0.4); HEMATOCRIT 40.7 % (42.0-52.0); HEMOGLOBIN 13.9 g/dl (14.0-18.0); LYMPH # 1.2 10*3/uL (1.3-4.4); LYMPH % 9.5 % (27.0-41.0); MEAN CELL VOLUME 84.6 fl (80.0-94.0); MEAN CORPUSCULAR HGB 28.9 pg (27.0-31.0); MEAN CORPUSCULAR HGB CONC 34.2 g/dl (33.0-37.0); MEAN PLATELET VOLUME 10.2 fl (9.6-12.3); MONO # 1.4 10*3/uL (0.1-1.0); MONO % 10.6 % (3.0-9.0); NEUT # 9.7 10*3/uL (2.3-7.9); NEUT % 74.5 % (47.0-73.0); PLATELET COUNT AUTOMATED 167 10*3/uL (130-400); RED BLOOD COUNT 4.81 10*6/uL (4.50-5.90); RED CELL DISTRI WIDTH 15.3 % (0-14.5); WHITE BLOOD COUNT 13.1 10*3/uL (4.8-10.8)
[2017-10-29 10:57] LABS: ACT PARTIAL THROMBO TIME 22.6 SECONDS (20.8-31.5)
[2017-10-29 11:06] LABS: ALBUMIN 3.4 gm/dl (3.1-4.5); CREATININE 1.82 mg/dL (0.70-1.30)
[2017-10-29 11:19] LABS: DIGOXIN 0.18 ng/ml (0.8-2.0)
[2017-10-29] MEDS ORDERED: HYDROCODONE-AC1 EAC2 PO (15:17)
[2017-10-29] MEDS ORDERED: BASAG SOL SQ (16:06)
[2017-10-30 00:27] VITALS: BP 147/62
[2017-10-30 06:34] LABS: CREATININE 1.63 mg/dL (0.70-1.30); POTASSIUM 3.8 mmol/L (3.5-5.1)
[2017-10-30 06:37] LABS: BASO # 0.1 10*3/uL (0.0-0.1); BASO % 1.2 % (0.0-1.0); EOS # 0.4 10*3/uL (0.0-0.4); EOS % 4.1 % (1.0-4.0); HEMATOCRIT 37.7 % (42.0-52.0); HEMOGLOBIN 12.5 g/dl (14.0-18.0); LYMPH # 1.5 10*3/uL (1.3-4.4); MEAN CELL VOLUME 85.9 fl (80.0-94.0); MEAN CORPUSCULAR HGB 28.5 pg (27.0-31.0); MEAN CORPUSCULAR HGB CONC 33.2 g/dl (33.0-37.0); MEAN PLATELET VOLUME 10.5 fl (9.6-12.3); MONO # 1.3 10*3/uL (0.1-1.0); NEUT % 67.2 % (47.0-73.0); PLATELET COUNT AUTOMATED 162 10*3/uL (130-400); RED BLOOD COUNT 4.39 10*6/uL (4.50-5.90); RED CELL DISTRI WIDTH 15.4 % (0-14.5); WHITE BLOOD COUNT 10.3 10*3/uL (4.8-10.8)
[2017-10-30 08:00] VITALS: BP 153/98
[2017-10-30] MEDS ORDERED: ASPIRIN325 M2 PO (09:24)
[2017-10-30 12:00] VITALS: BP 155/84
[2017-10-30 16:00] VITALS: BP 153/94
[2017-10-31] VITALS: BP 127/59
[2017-10-31 08:00] VITALS: BP 160/98
[2017-10-31] MEDS ORDERED: DOXYCYCLINE100 MG PO (08:28)
[2017-10-31] MEDS ORDERED: CIPRO500 MG PO (08:28)
[2017-10-31] MEDS ORDERED: GLIPIZIDE XL2.5 M1 PO (08:32)
[2017-10-31] MEDS ORDERED: BASAG SOL SQ (08:33)
[2017-11-28] MEDS ORDERED: NORCO 5-325 TA1 EACH PO (12:38)
== END 2017-10-31 12:37 | disposition home or self-care (01) | DRG 603 ==
LOC: ED 09:47 → EDHOLD 13:54 → 4E 13:54
PROVIDERS: Emergency Medicine; Internal Medicine
DX: L03.221 Cellulitis of neck (principal); E11.22 Type 2 diabetes mellitus with diabetic chronic kidney disease; I42.9 Cardiomyopathy, unspecified; I13.0 Hypertensive heart and chronic kidney disease with heart failure and stage 1 through stage 4 chronic kidney disease, or unspecified chronic kidney disease; I50.22 Chronic systolic (congestive) heart failure; L72.3 Sebaceous cyst; I48.2 Chronic atrial fibrillation; N18.3 Chronic kidney disease, stage 3 (moderate); I25.10 Atherosclerotic heart disease of native coronary artery without angina pectoris; F41.1 Generalized anxiety disorder; Z87.01 Personal history of pneumonia (recurrent); Z87.440 Personal history of urinary (tract) infections; Z88.7 Allergy status to serum and vaccine; Z88.8 Allergy status to other drugs, medicaments and biological substances; Z88.6 Allergy status to analgesic agent; Z91.030 Bee allergy status; Z79.899 Other long term (current) drug therapy; Z82.5 Family history of asthma and other chronic lower respiratory diseases; Z95.2 Presence of prosthetic heart valve

== ENCOUNTER → 2017-11-28 | Day surgery (SDC) | payer OTHER ==
[~2017-11-28] VITALS: Ht 187.9 cm; Wt 102.1 kg
[~2017-11-28] MED LIST changes: +'CLONIDINE0.1 MG PO; +ASPIRIN325 M2 PO; +AUGMENTIN XR 11 EACH PO; +BASAG SOL SC; +BASAG SOL SQ; +BUSPAR5 MG PO; +CYMBALTA30 MG PO; +DOXYCYCLINE100 MG PO; +EFFEXOR XR75 MG PO; +GLIPIZIDE XL2.5 M1 PO; +HYDROCODONE-AC1 EAC2 PO; +ISOSORBIDE DINI30 MG PO; +LASIX80 MG PO; +MIRTAZAPINE45 MG PO; +NORCO 5-325 TA1 EACH PO; +POLYSPORIN OINT15 GM T; +ZOCOR20 MG PO
--- NOTE | ~2017-11-28 | PROC NOTE ---
[place], [place] PROCEDURE NOTE NAME: NATASHA FERRARO UNIT #: [id number] ROOM: DOCTOR: RALEIGH SANCHEZ MD BIRTHDATE: [birth year] DOS: 11/28/2017 PREOPERATIVE DIAGNOSIS: Left posterior neck soft tissue mass. POSTOPERATIVE DIAGNOSIS: Left posterior neck soft tissue mass. PROCEDURE: Excision of left posterior soft tissue mass. SURGEON: Raleigh Sanchez MD INSIDE TRUCKER: ASHTYN. ANESTHESIA: Local. INDICATIONS: This is a 52-year-old gentleman with a symptomatic painful left posterior neck soft tissue mass is here for the above-mentioned procedure. The procedure and its complications were explained to the patient in detail preoperatively. Complications that were discussed included but were not limited to bleeding, infection, hematoma/seroma/abscess formation and prolonged pain. He agreed to proceed. DESCRIPTION OF PROCEDURE: After identifying the patient, the patient was brought to the operating suite and laid in the right lateral position. After a timeout procedure was called, the parts were painted and draped in the usual sterile fashion. An incision was marked and local anesthesia was infiltrated in the line of the incision. Incision was made. The mass was excised in its entirety after it was from the surrounding soft tissue. This was sent for histopathological diagnosis. Hemostasis was achieved with the help of electrocautery. Thereafter, the subcutaneous tissue was irrigated and approximated with the help of interrupted 3-0 Vicryl and the skin edges were approximated with the help of interrupted 4-0 Vicryl in a subcuticular fashion. Dressing was placed. The patient tolerated the procedure well. There were no complications. Dr. Raleigh Sanchez, the attending surgeon, was present throughout the operating case. Raleigh Sanchez MD CM:PROCNOTE:PROCEDURE NOTE [id number] RALEIGH SANCHEZ MD
[2017-11-28 11:24] VITALS: BP 191/84
[2017-11-28 12:05] VITALS: BP 143/69
[2017-11-28 12:10] VITALS: BP 129/94
[2017-11-28 12:15] VITALS: BP 127/100
[2017-11-28 12:20] VITALS: BP 122/96
[2017-11-28 12:31] VITALS: BP 148/96
== END | disposition home or self-care (01) ==
LOC: SDC 11-26 09:30
DX: L72.0 Epidermal cyst (principal); R22.1 Localized swelling, mass and lump, neck; I13.0 Hypertensive heart and chronic kidney disease with heart failure and stage 1 through stage 4 chronic kidney disease, or unspecified chronic kidney disease; I50.9 Heart failure, unspecified; I25.10 Atherosclerotic heart disease of native coronary artery without angina pectoris; E11.22 Type 2 diabetes mellitus with diabetic chronic kidney disease; N18.9 Chronic kidney disease, unspecified; I48.91 Unspecified atrial fibrillation; I25.2 Old myocardial infarction; F32.9 Major depressive disorder, single episode, unspecified; F41.9 Anxiety disorder, unspecified; Z79.01 Long term (current) use of anticoagulants; Z79.899 Other long term (current) drug therapy; Z79.82 Long term (current) use of aspirin; Z79.4 Long term (current) use of insulin; Z79.891 Long term (current) use of opiate analgesic; Z98.890 Other specified postprocedural states; Z98.0 Intestinal bypass and anastomosis status; Z88.8 Allergy status to other drugs, medicaments and biological substances; Z87.891 Personal history of nicotine dependence; Z87.01 Personal history of pneumonia (recurrent)

== ENCOUNTER 2017-12-18 10:12 | Emergency (ER) | payer OTHER ==
[~2017-12-18] VITALS: Ht 187.9 cm; Wt 106.6 kg
[~2017-12-18 10:12] MED LIST changes: -'CLONIDINE0.1 MG PO; -AUGMENTIN XR 11 EACH PO; -BASAG SOL SC; -BUSPAR5 MG PO; -CYMBALTA30 MG PO; -EFFEXOR XR75 MG PO; -ISOSORBIDE DINI30 MG PO; -MIRTAZAPINE45 MG PO; -POLYSPORIN OINT15 GM T; -ZOCOR20 MG PO
[2017-12-18 10:17] VITALS: BP 166/107
[2017-12-18] MEDS ORDERED: POLYSPORIN OINT15 GM T (11:14)
== END 2017-12-18 11:29 | disposition home or self-care (01) ==
LOC: ED 10:12
DX: S01.81XA Laceration without foreign body of other part of head, initial encounter (principal); H02.844 Edema of left upper eyelid; I48.91 Unspecified atrial fibrillation; I13.0 Hypertensive heart and chronic kidney disease with heart failure and stage 1 through stage 4 chronic kidney disease, or unspecified chronic kidney disease; E11.22 Type 2 diabetes mellitus with diabetic chronic kidney disease; N18.3 Chronic kidney disease, stage 3 (moderate); I50.9 Heart failure, unspecified; Z79.899 Other long term (current) drug therapy; Z91.030 Bee allergy status; Z88.5 Allergy status to narcotic agent; Z93.3 Colostomy status; Z98.890 Other specified postprocedural states; Z88.7 Allergy status to serum and vaccine; Z79.4 Long term (current) use of insulin; Z79.82 Long term (current) use of aspirin; Z79.01 Long term (current) use of anticoagulants; W08.XXXA Fall from other furniture, initial encounter; Y93.89 Activity, other specified; Y92.89 Other specified places as the place of occurrence of the external cause; Y99.9 Unspecified external cause status

== ENCOUNTER 2017-12-26 10:35 | Inpatient (IN) | payer OTHER ==
[2017-12-26] VITALS (12 sets, daily range): BP systolic 118–200; BP diastolic 80–122
[~2017-12-26] VITALS: Ht 187.9 cm; Wt 98.9 kg
--- NOTE | ~2017-12-26 | WRIGHTHP ---
[place], [place] PATIENT HISTORY AND PHYSICAL EXAM NAME: NATASHA FERRARO UNIT #: [id number] ROOM: [facility] DOCTOR: FIFI BURNETT MD BIRTHDATE: [birth year] DOS: 12/26/2017 REASON FOR ADMISSION: 1. The patient is a 52-year-old gentleman with a past medical history of uncontrolled type 2 diabetes mellitus. 2. Chronic atrial fibrillation. The patient is anticoagulated. 3. Generalized anxiety disorder. 4. Chronic kidney disease, stage 3B. 5. Benign essential hypertension. 6. Coronary artery disease of the [place] vessels and [place] infarction. 7. Major depression, recurrent. 8. Poor compliance with treatment and medications. 9. History of colostomy. HISTORY OF PRESENT ILLNESS: The patient presented to the Emergency Department today for complaints of chest pains and he was found to be in atrial fibrillation with rapid ventricular response. He had minimal elevation of his troponin I level and was admitted to ICU for close monitoring after consulting Cardiology. The patient was admitted to ICU and since then, his heart rate has increased to 136 beats per minute and blood pressure increased to 175 systolic over 122 diastolic and patient has become somewhat short of breath. The patient was evaluated by Dr. Frazier, the want ad clerk and started on IV heparin and DVT studies were ordered. The patient has developed a fever of 102 degrees Fahrenheit and appears somewhat uncomfortable. No dizziness or fainting episodes noted. No other GI or urinary symptoms. REVIEW OF SYSTEMS: RESPIRATORY: Increased shortness of breath. GASTROINTESTINAL: No nausea, vomiting, diarrhea or constipation. CARDIOVASCULAR SYSTEM: The patient complains of chest pains and now is tachycardic. FAMILY HISTORY: Noncontributory. SOCIAL HISTORY: Denies smoking cigarettes, alcohol and drug abuse. HOME MEDICATIONS: The patient takes venlafaxine, metoprolol, lisinopril, Imdur, Symbicort, digoxin, clonidine, mirtazapine, gabapentin, furosemide, Lantus insulin, Vicodin. ALLERGIES: THE PATIENT IS ALLERGIC TO BEE STINGS, VILLARREAL PEPPERS CODEINE, INFLUENZA VACCINE AND PNEUMOCOCCAL VACCINE. PHYSICAL EXAMINATION: GENERAL: Alert looking somewhat apprehensive and short of breath and restless. VITAL SIGNS: Blood pressure 175/122, heart rate of 136 beats per minute, temperature 102 degrees Fahrenheit. GENERAL APPEARANCE: The patient is alert and oriented x 3, in no visible distress. Apprehension and shortness of breath. HEENT AND NECK: Extraocular movements are intact. Sclerae are anicteric. [place], [place] PATIENT HISTORY AND PHYSICAL EXAM NAME: NATASHA FERRARO UNIT #: [id number] ROOM: [facility] DOCTOR: FIFI BURNETT MD BIRTHDATE: [birth year] mucosa is moist and clean. No obvious facial weakness. Neck is supple without any lymphadenopathy. No thyromegaly. No JVD. No carotid arterial bruits. LUNGS: Clear to auscultation. No wheezing. No rhonchi. CARDIOVASCULAR SYSTEM: Heart rate is regular in rate and rhythm. S1 and S2 normally audible. No significant murmur or any other abnormal cardiac sounds. ABDOMEN: Soft, nontender. No obvious organomegaly. Bowel sounds are present. No obvious herniation. EXTREMITIES: Without significant cyanosis or edema. Warm to touch. CENTRAL NERVOUS SYSTEM: Alert and oriented x 3. Cranial nerves II-XII are intact. Speech is normal. The patient is able to move all extremities. Normal muscle strength. Deep tendon reflexes are equal on both sides. Plantars were downgoing. LABORATORY DATA: Blood gases showing a pH of 7.4, pO2 of 63, saturating 88%, pulse ox on 3 liters of oxygen. Cardiac enzymes minimally positive staying in the 0.2 to 0.3 range. Digoxin level of 0.42. Normal CBC. IMPRESSION: 1. The patient with possibility of pulmonary embolism, has been heparinized and DVT studies have been ordered. The patient is being closely monitored in the ICU. 2. Chronic atrial fibrillation with rapid ventricular response, which is being controlled with digoxin and IV Cardizem. 3. Chronic systolic type congestive heart failure, treated and controlled. 4. High grade fever apparently possibility of sepsis on checking his urine. Chest x-ray was clear. Blood cultures have been sent and Infectious Disease specialists consulted for choice of antibiotics. 5. Benign essential hypertension. The patient with elevated blood pressures. The patient remains on clonidine, diltiazem, and metoprolol. 6. Major depression, recurrent, moderate. The patient on venlafaxine and Cymbalta, also takes mirtazapine. 7. History of coronary artery disease and myocardial infarction with minimally elevated cardiac enzymes, apparently secondary to tachycardia and he also complains of chest pains, being followed closely by Cardiology and he remains in the ICU. [place], [place] PATIENT HISTORY AND PHYSICAL EXAM NAME: NATASHA FERRARO UNIT #: [id number] ROOM: [facility] DOCTOR: FIFI BURNETT MD BIRTHDATE: [birth year] FIFI BURNETT MD CM:HISPHYS:PATIENT HISTORY AND PHYSICAL EXAMINATION 180 42 FIFI BURNETT MD 12/26/17 184 interface
--- NOTE | ~2017-12-26 | PR ---
[place], [place] PROGRESS NOTE NAME: NATASHA FERRARO UNIT #: [id number] ROOM: [facility] DOCTOR: FIFI BURNETT MD BIRTHDATE: [birth year] DOS: 12/28/2017 SUBJECTIVE: The patient is feeling better today. OBJECTIVE: GENERAL APPEARANCE: The patient is alert and oriented x 3, in no visible distress, and generalized weakness. VITAL SIGNS: Blood pressure 132/80, heart rate 88 beats per minute, breathing 16 times per minute, temperature 98 degrees Fahrenheit. HEENT AND NECK: Exam within normal limits. CARDIOVASCULAR SYSTEM: Irregular heart rate on auscultation. S1 and S2 normally audible. LUNGS: Clear to auscultation. ABDOMEN: Soft, nontender. No obvious organomegaly. Bowel sounds are present. EXTREMITIES: Without significant cyanosis or edema. IMPRESSION: 1. Atrial fibrillation with rapid ventricular response with improved heart rates with treatment. The patient anticoagulated with Eliquis. 2. Benign essential hypertension with better controlled blood pressures now. 3. Acute over chronic kidney disease, kidney failure, now stage 4. Nephrology consulted to follow. 4. Major sepsis with fevers, tachycardia, and elevated lactic acid levels, treated and improved. Urine and blood cultures have been negative. 5. Adult failure to thrive and generalized weakness. The patient to be started on physical therapy. 6. Bilateral pneumonia and sepsis, being treated with antibiotics, oxygen, and nebulizer treatment. 7. Leukocytosis, resolved. 8. Acute respiratory failure, improved with treatment related to infection and pneumonia. 9. Coronary artery disease of [place] vessels without chest pains. 10. Chronic atrial fibrillation with rapid ventricular response, controlled with treatment. [place], [place] PROGRESS NOTE NAME: NATASHA FERRARO UNIT #: [id number] ROOM: [facility] DOCTOR: FIFI BURNETT MD BIRTHDATE: [birth year] FIFI BURNETT MD CM:PNTRANS [id number] FIFI BURNETT MD 12/29/17 0109 interface
--- NOTE | ~2017-12-26 | PR ---
[place], [place] PROGRESS NOTE NAME: NATASHA FERRARO UNIT #: [id number] ROOM: 531 DOCTOR: ROCKY JOAQUIN MD,FRANNIE BIRTHDATE: [birth year] DOS: 01/01/2018 SUBJECTIVE: The patient noted comfortable at this time with mild distress, resting on the bed. He was noted fully awake and alert, does not have any cough. There was no sputum expectoration, shortness of breath has improved. He has been assessed for home oxygen supplementation yesterday and did qualify for oxygen supplementation. OBJECTIVE: VITAL SIGNS: Normal temperature, respiratory rate 20, heart rate 72, blood pressure 156/94, pulse ox saturation on 4 liters nasal cannula 95% saturation at rest. HEENT: Shows head was atraumatic. Eyes nonicterus. NECK: Supple. CARDIOVASCULAR: S1, S2 is audible. LUNGS: The patient was noted without any wheeze or crackles. ABDOMEN: Soft, nontender. IMPRESSION: 1. Gradual but slow resolution of acute hypoxic respiratory failure. The patient noted with resolving acute pneumonia, already treated with the antibiotics. 2. Resolving acute kidney injury, further improvement in the kidney functions were noted. Creatinine today was noted less than 2. PLAN OF MANAGEMENT: The patient could be discharged the patient home settings rather home with the use of oxygen 4 liters canula advised for office followup, post-discharge in the next few weeks. Continue in the meantime, other plan of therapy care plan and treatment. No further need of antibiotic upon discharge will be needed. FRANNIE HIDALGO MD CM:PNTRANS [id number] FRANNIE JOAQUIN MD 01/01/18 1113 interface
--- NOTE | ~2017-12-26 | EKG ---
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 Electronically Signed On 12-26-2017 20:39:27 PDT by Cisco Frazier MD CM:EKGRPT:ELECTROCARDIOGRAM REPORT [id number] JACK RED DRAFT REPORT JACK CORRAL M.D.
--- NOTE | ~2017-12-26 | PR ---
[place], [place] PROGRESS NOTE NAME: NATASHA FERRARO UNIT #: [id number] ROOM: [facility] DOCTOR: FIFI BURNETT MD BIRTHDATE: [birth year] DOS: 12/27/2017 SUBJECTIVE: A 52-year-old gentleman remains in the ICU, looking much better than yesterday. OBJECTIVE: VITAL SIGNS: Blood pressure 128/70, heart rate 81 beats per minute, breathing 24 times per minute, temperature 102.4 degrees Fahrenheit. GENERAL APPEARANCE: The patient is alert and oriented x 3, in no visible distress. HEENT AND NECK: Exam within normal limits. CARDIOVASCULAR SYSTEM: Heart rate is irregularly irregular rate and rhythm. LUNGS: Showed decreased breath sounds. ABDOMEN: Soft, nontender. No obvious organomegaly. Bowel sounds are present. EXTREMITIES: Without significant cyanosis. Generalized weakness to the leg and pedal edema 2+. IMPRESSION: 1. The patient with pneumonia and sepsis, being treated with antibiotics. The patient still has high-grade fevers. Blood cultures have been drawn and Dr. Pop, the cost estimating engineer, is following him. The patient's oxygen requirement has improved. 2. Atrial fibrillation with rapid ventricular response. Heart rates are better controlled with infusion of IV Cardizem, which has been reduced. The patient also remains on metoprolol and digoxin. The patient is also anticoagulated with apixaban. 3. Benign essential hypertension, treated and controlled. The patient on lisinopril, clonidine. 4. Coronary artery disease of the [place] vessels without chest pains. The patient stays on Imdur. 5. Major depression, recurrent, moderate, treated with Cymbalta and venlafaxine. 6. Type 2 diabetes mellitus, treated with insulin. 7. Chronic kidney disease stage 3b kidney function. BUN and creatinine, serum electrolytes are being monitored. 8. Minor elevation of troponin I levels related to tachycardia. Cardiology is following. 9. Major sepsis with high grade fevers of 102.5 degrees Fahrenheit, tachycardia. Elevated lactic acid levels of 6. 10. Acute respiratory failure. 11. Leukocytosis, white cell count 13,000, all improving. [place], [place] PROGRESS NOTE NAME: NATASHA FERRARO UNIT #: [id number] ROOM: [facility] DOCTOR: FIFI BURNETT MD BIRTHDATE: [birth year] FIFI BURNETT MD CM:PNTRANS [id number] FIFI BURNETT MD 12/28/17 0316 interface
--- NOTE | ~2017-12-26 | CON ---
[place], [place] REPORT OF CONSULTATION NAME: NATASHA FERRARO UNIT #: [id number] ROOM: 531 DOCTOR: IDALMIS HAN MD BIRTHDATE: [birth year] DOS: 12/29/2017 NEPHROLOGY CONSULTATION REASON FOR CONSULTATION: Acute on chronic kidney disease. HISTORY OF PRESENT ILLNESS: This is a 52-year-old male. He has a history of known chronic kidney disease. He has been seen by our service in the past. 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 It appears he has a baseline creatinine in the range of 2 with fluctuations at times. He has had acute kidney injury in the past as well. He has a history of diabetes, atrial fibrillation, anxiety, hypertension, poor compliance with meds and followup. He came to the Emergency Room with chest pain. He has been here a few days now. He was being treated for that and developed some hypoxia and lethargy. The patient had a rise in his creatinine, we were consulted yesterday. I did give instructions to give some fluids and seems that his renal function is a little bit better. He tells me he is feeling better as well. He denies nausea or vomiting. The patient most likely has pneumonia. There was a concern for a pulmonary embolus as well. There also was worry about CHF and seems he was receiving diuretics and continues to receive diuretics. He states he was not drinking much or eating much, but now feeling better. It seems the patient had an elevated lactic acid level when he came in, it did subsequently improve. ALLERGIES: Listed to CODEINE AND PHOSPHATE. MEDICATIONS: Included atorvastatin, metoprolol, lisinopril, clonidine, isosorbide, Eliquis, Lasix, digoxin, Effexor, mirtazapine, gabapentin, ibuprofen, insulin, Levaquin, diazepam. PAST MEDICAL HISTORY: 1. Known chronic kidney disease as stated above. 2. Chronic atrial fibrillation. 3. Mitral valve replacement. 4. Diabetes mellitus. 5. Hypertension. 6. Coronary artery disease. 7. Recent fall with some bruising of the skin around the left eye. 8. Aortic valve replacement. 9. Exploratory laparotomy with bowel resection. FAMILY HISTORY: Negative for chronic kidney disease, otherwise noncontributory. SOCIAL HISTORY: No current tobacco, alcohol, or illicit drugs. REVIEW OF SYSTEMS: As per HPI, otherwise, a 14-point review of systems was reviewed and was negative. PHYSICAL EXAMINATION: VITAL SIGNS: Temperature was 100. He did have a T-max of 102.4, pulse 120, [place], [place] REPORT OF CONSULTATION NAME: NATASHA FERRARO UNIT #: [id number] ROOM: 531 DOCTOR: IDALMIS HAN MD BIRTHDATE: [birth year] respiratory rate 20, blood pressure 159/99. GENERAL: He is awake and alert, comfortable, in no acute distress. HEENT: Shows no JVD. He had some ecchymosis around the left orbit. NECK: Supple. Trachea is midline. Mucous membranes appear dry. Pharynx is clear. HEART: S1, S2, tachycardic. There is no rub, thrill, or gallop. ABDOMEN: Soft, nontender. There is no organomegaly or rigidity, rebound, or guarding. There is no CVA tenderness. EXTREMITIES: Had no edema. There is no lower extremity lymphadenopathy. Distal pulses are 2+. SKIN: Showed no overt rash. There is no petechia or purpura. Skin temperature is warm. NEUROLOGIC: He is awake, alert, and following commands. Cranial nerves intact. LABORATORY DATA: Hemoglobin 13.9, white count of 6.6, platelets of 89. Sodium 139, potassium 3.5, CO2 of 31, calcium 8.4, albumin 2.4, BUN 41, creatinine 3.15. IMPRESSION: 1. Acute on chronic kidney disease with a baseline creatinine that seems to be in the range of 2. The etiology seems most likely related to prerenal factors. 2. Dyspnea with probable pneumonia. 3. Fever/systemic inflammatory response syndrome. 4. Atrial fibrillation. 5. History of valvular heart disease. 6. Mild anemia. 7. Elevated bilirubin/hyperbilirubinemia. PLAN: 1. The patient appears volume depleted. It is not clear if he has CHF versus pneumonia. His fever seems more consistent with pneumonia. Continue IV antibiotics. Management per the pulmonary service. We will hold diuretics for now. 2. Although his creatinine is better, we will hold his ROBERT inhibitor at this time. If his creatinine continues to trend downwards, this can be resumed, but would advise holding for now. 3. If his renal function does not improve, would check renal imaging. 4. Would discontinue ibuprofen and avoid using NSAIDs. 5. Continue ongoing supportive care. Thank you for this consultation. We will follow with you. [place], [place] REPORT OF CONSULTATION NAME: NATASHA FERRARO UNIT #: [id number] ROOM: 531 DOCTOR: IDALMIS HAN MD BIRTHDATE: [birth year] IDALMIS HAN MD CM:CONSTR:REPORT OF CONSULTATION 1238 12/29/17 2336 interface
--- NOTE | ~2017-12-26 | CON ---
[place], [place] REPORT OF CONSULTATION NAME: NATASHA FERRARO UNIT #: [id number] ROOM: 531 DOCTOR: FRANNIE MANJARREZ MD BIRTHDATE: [birth year] DOS: 12/27/2017 PULMONARY CONSULTATION, EVALUATION AND MANAGEMENT CONSULTATION REQUESTED BY: Dr. Sharif. REASON FOR CONSULTATION: To assess the patient's current acute respiratory complaints. HISTORY OF PRESENT ILLNESS: A 52-year-old white male with past history of mitral valve replacement, chronic atrial fibrillation, on anticoagulation of the patient and type 2 diabetes mellitus, presented to Emergency Room as the patient has been noted with symptoms of increased pain, which are described in the chest, which has been noted nonspecific and right-sided. The patient was noted atrial fibrillation with rapid ventricular response in the Emergency Room. The troponin was also noted mildly elevated with uncontrolled hypertension on admission. The patient has been admitted to the hospital and noted significant tachycardia. The patient's temperature was noted up to 102 degrees Fahrenheit later on admission in the Intensive Care Unit. He was noted significant tachypnea with coughing and significant sputum expectoration later on. The patient has been managed by the Cardiology Services, received the medication for the management of atrial fibrillation, rapid ventricular response and later on started on the unfractionated therapeutic heparin. The patient has expectorated copious amount of sputum per nursing staff in the last 24 hours. He was noted with severe lactic acidosis. The patient has signs of acute sepsis. The patient was started on antibiotic, Levaquin and the Rocephin yesterday. Wright cultures were done including urine for legionella antigen. The patient has been noted with reduction of the respiratory symptoms at this time of assessment. REVIEW OF SYSTEMS: CONSTITUTIONAL: Significant fatigue and tiredness noted with symptoms of fever for the patient without any chills on this admission recently. EYES: Denies any burning, redness, or tenderness. EARS, NOSE, THROAT SYMPTOMS: Denies sore throat, hoarseness, otalgia, postnasal drainage or epistaxis. CARDIOVASCULAR: Denies angina pain, edema or pain of the lower extremities. GASTROINTESTINAL: Denies dysphagia, nausea, vomiting, diarrhea, abdominal pain, hematemesis, melena or hematochezia. GENITOURINARY: No dysuria, suprapubic pain or hematuria. MUSCULOSKELETAL: Denies any joint pain, redness or tenderness. CENTRAL NERVOUS SYSTEM: The patient was noted without any dizziness, headache or diplopia. General weakness and fatigue were reported. Remaining systems were reviewed. They were noted all negative. PAST MEDICAL HISTORY: Noted as history of: 1. Chronic atrial fibrillation, on anticoagulation. 2. Mild cardiomyopathy, ejection fraction 45%, known since 11/2016. 3. Bioprosthetic mitral valve replacement. 4. Type 2 diabetes mellitus. [place], [place] REPORT OF CONSULTATION NAME: NATASHA FERRARO UNIT #: [id number] ROOM: 531 DOCTOR: ROCKY OJAQUIN MD,[facility] BIRTHDATE: [birth year] 5. Essential hypertension. 6. Coronary artery disease. 7. Recent fall for this patient with some bruising of the skin and around the left eye. 8. History of essential hypertension. 9. Chronic kidney disease stage 3. PAST SURGICAL HISTORY: 1. Noted with bioprosthetic valve replacement. 2. Exploratory laparotomy for the patient with partial reduction of the bowel in the past. SOCIAL HISTORY: The patient lives at home. Denies history of tobacco, alcohol or illicit drug use. FAMILY HISTORY: Noted noncontributory. HOME MEDICATIONS: Listed use of glipizide, Eliquis, Aldactone, metoprolol succinate, sliding scale insulin coverage and NovoLog insulin. The patient was also using the Valium, Vicodin, aspirin, lisinopril, digoxin, clonidine, vitamin D, Lasix, Cymbalta, BuSpar, Zocor, isosorbide mononitrate, Effexor, Remeron and gabapentin. The patient was also taking at home, Cardizem-CD 180 mg daily. DRUG ALLERGIES: THE PATIENT WAS NOTED ALLERGIES TO CODEINE AND PHOSPHATE. CURRENT MEDICATIONS: Administered to the patient were noted as use of metoprolol succinate, lisinopril, clonidine, Imdur, unfractionated therapeutic heparin, digoxin, Effexor, Cymbalta, Remeron, gabapentin, intravenous Cardizem drip, IV Rocephin, IV Levaquin, and other p.r.n. medications. PHYSICAL EXAMINATION: GENERAL: A 52-year-old white male patient who has been currently sitting on the bed without any acute distress. Height of 6 feet 2 inches, weight of 218 pounds, BMI 28. VITAL SIGNS: For the patient noted, temperature noted as up to 102 degrees Fahrenheit yesterday. The respiratory rate for the patient recorded as 26. Heart rate of 110-148 to the highest and atrial fibrillation with rapid ventricular response, currently noted with atrial fibrillation and atrial flutter combination, combination. Blood pressure 132/82-175/122 previously noted. Intake is 3.275 liters, output 1600 mL. The pulse oxygen saturation of the patient on 2 liters nasal cannula 90%, later 100% nonrebreather mask 96% and this morning on 4 liters was 94% saturation at bedside noted. HEENT: Head was atraumatic. Eyes nonicterus. Periorbital mild edema for the patient with area of bruising around the left eye. There were no open areas. There is mild open area for the patient which has a crust formation on the skin. NECK: Supple. CARDIOVASCULAR: S1, S2 is audible. Tachycardia. No added sounds. LUNGS: Crackles of the lungs were noted in the lungs mid portion of the patient, more on the right than the left side. There was no wheezing. ABDOMEN: Flat, soft, nontender. Bowel sounds present. [place], [place] REPORT OF CONSULTATION NAME: NATASHA FERRARO UNIT #: [id number] ROOM: 531 DOCTOR: ROCKY JOAQUIN MD,[facility] BIRTHDATE: [birth year] EXTREMITIES: Without any acute edema, clubbing, cyanosis. MUSCULOSKELETAL: Without acute deformities. CENTRAL NERVOUS SYSTEM: Cranial nerves 2-12 intact without any focal deficit. LABORATORY DATA: PT/PTT yesterday was noted normal. CMP of the patient yesterday, BUN 17, creatinine 1.98, glucose 306. Bilirubin total of 1.8. Troponin 0.23, date 12/11/2017 noted 0.42 on admission. Lactic acid yesterday done after admission in Intensive Care Unit, was 6 and 5 after 2 liters of intravenous fluids administration 2.0. Venous duplex of lower extremity does not show any evidence of acute deep venous thrombosis of the patient's lower extremity, the negative examination was noted. Arterial blood gas yesterday, pH of 7.41, pCO2 of 29 and pO2 63 consistent with compensated metabolic acidosis. CBC this morning, WBC count 13.2, hemoglobin and hematocrit normal, platelet count was normal. Chest x-ray yesterday were noted without any acute pulmonary infiltration. The chest x-ray done this morning shows evidence of moderate sized infiltration noted in the right mid lung, which appeared to be somewhat pleural based as well. Arterial blood gas repeated again on 50% Venturi mask, pH of 7.38, pCO2 of 38, pO2 85. Repeat echocardiogram of the patient that was done this morning assessed by Dr. Frazier, his report has findings of moderate LVH, abnormal septal motion consistent with postoperative status. Global hypokinesia of left ventricle of the patient was also noted. Mild pulmonary hypertension was also reported. Left ventricle ejection fraction was estimated as 40%. IMPRESSION: 1. The patient has been noted with acute severe hypoxic respiratory failure, requiring oxygen supplementation up to 50% Venturi mask with acute sepsis for this patient was noted with lactic acidosis secondary to acute pneumonia. 2. Atrial fibrillation with rapid ventricular response, history of chronic atrial fibrillation, currently noted with reduction of the heart rate for this patient still noted mild rapid ventricular response. 3. Abnormal troponin for the patient at this time, currently being assessed by Dr. Frazier. 4. The patient with cardiomyopathy. 5. Status post bioprosthetic mitral valve for the patient, anticoagulation, previously noted with Eliquis. Currently receiving unfractionated therapeutic heparin. 6. The patient with chronic kidney disease with uncontrolled diabetes mellitus as well. PLAN OF MANAGEMENT: The patient's further fluid administration has been discontinued. Repeat the LFTs for the patient in the morning. Monitor CBC. Continue the Levaquin and intravenous Rocephin. Monitor chest x-ray continued. Titrate oxygen supplementation and pulse oxygen saturation 92% or greater. Anticoagulation per Cardiology service to be continued. Continue to maximize the medical management of atrial fibrillation with rapid ventricular response. Continue assessment as ongoing for the patient's abnormal troponin, rule out acute myocardial infarction. Usual care, other supportive therapy, plan of management of the patient to be continued for the patient as in progress. Sputum for Gram stain culture was ordered for the patient. The patient has [place], [place] REPORT OF CONSULTATION NAME: NATASHA FERRARO UNIT #: [id number] ROOM: 531 DOCTOR: FRANNIE MANJARREZ MD BIRTHDATE: [birth year] expectorated sputum usually on the floor, but have not had any sputum expectoration in the cup; however the cup was not available to send the sputum for culture. Monitor temperature curve as well. Other supportive therapy, plan of management care with additional treatment changes will be done based on progression of the illness. FRANNIE HIDALGO MD CM:CONSTR:REPORT OF CONSULTATION 1850 01/09/18 0912 interface
--- NOTE | ~2017-12-26 | PR ---
[place], [place] PROGRESS NOTE NAME: NATASHA FERRARO UNIT #: [id number] ROOM: 531 DOCTOR: FRANNIE MANJARREZ MD BIRTHDATE: [birth year] DOS: 12/31/2017 SUBJECTIVE: The patient was independently seen and examined with [id number] encounter. History was confirmed. Physical examination was performed. Labs were reviewed with the patient. The assessment and management of the patient was personally completed for today's note. The note done by the medical office coordinator was approved as well. He has been comfortably resting at this time without any acute distress with the symptom reported earlier to the medical office coordinator. The patient has not been noted any hemodynamic instability or other problems. OBJECTIVE: VITAL SIGNS: Normal temperature, respiratory rate 18, heart rate 55, blood pressure 142/73, pulse ox saturation on 4 liters nasal cannula 92% saturation. HEENT: Head was atraumatic. Eyes nonicterus. NECK: Supple. CARDIOVASCULAR: S1, S2 is audible. LUNGS: Noted without any wheeze or crackles at the present time. ABDOMEN: Soft, nontender. Bowel sounds are present. EXTREMITIES: Without any acute edema. LABORATORY DATA: BUN and creatinine noted BUN 28, creatinine 1.98. Urine for legionella antigen was negative. IMPRESSION: 1. Resolving acute pneumonia. 2. Improving acute kidney injury. 3. Acute hypoxic respiratory failure. 4. Debility. PLAN OF MANAGEMENT: Discharge planning could be started on home oxygen assessment of the patient prior to discharge would be recommended. Oral antibiotic on discharge after the patient is cleared up from the Nephrology services could be done. Outpatient followup will be suggested for assessment of respiratory disease for future. [place], [place] PROGRESS NOTE NAME: NATASHA FERRARO UNIT #: [id number] ROOM: 531 DOCTOR: FRANNIE MANJARREZ MD BIRTHDATE: [birth year] FRANNIE HIDALGO MD CM:PNTRANS [id number] [id number] FRANNIE JOAQUIN MD 12/31/17 6429 interface
--- NOTE | ~2017-12-26 | PR ---
[place], [place] PROGRESS NOTE NAME: NATASHA FERRARO UNIT #: [id number] ROOM: 531 DOCTOR: ROCKY JOAQUIN MD,FRANNIE BIRTHDATE: [birth year] DOS: 12/29/2017 SUBJECTIVE: The patient has been noted comfortable at this time without any acute distress, resting in the bed. Shortness of breath and coughing has been resolving progressively. There were no symptoms of chest pain reported by the patient. No symptoms of nausea or vomiting. The patient has been assessed by the Nephrology service for acute kidney injury, partial reduction in creatinine noted. No symptoms of hematuria, suprapubic pain or headache. The remaining systems were reviewed. They were noted all negative. OBJECTIVE: VITAL SIGNS: For the patient shows a temperature as 100 to 100.9 degrees Fahrenheit. The respiratory rate of 20, heart rate of 120, blood pressure 159/99. Pulse ox saturation on 4 liters nasal cannula 92% saturation. HEENT: Examination shows head was atraumatic. Eyes nonicterus. NECK: Supple. CARDIOVASCULAR: S1, S2 is audible. LUNGS: Noted without any wheezing or crackles at this time. ABDOMEN: Soft and nontender. Bowel sounds are present. EXTREMITIES: Without acute edema. SKIN: Visible skin, no lesions or rashes. CENTRAL NERVOUS SYSTEM: Nonfocal. MUSCULOSKELETAL: No deformities. LABORATORY DATA: CBC noted as normal CBC essentially except platelet count was decreased to 89,000. CMP of the patient today, BUN 41, creatinine 3.15. Glucose 139. Total bilirubin of 3.2. AST of 56. IMPRESSION: 1. The patient who has been noted with current acute pneumonia in a patient with history of sepsis. 2. Mild abnormal LFTs, hyperbilirubinemia noted. 3. Acute kidney injury noted progressive on this admission. 4. Atrial fibrillation, currently noted with current controlled response. 5. Low grade fever was identified in the last 24 hours. PLAN OF TREATMENT: Obtain a chest x-ray at the present time to reassess. If necessary, consider getting a CT scan of the chest as well for the detailed assessment of the lung. Usual care. Other supportive therapy, plan of management and care plan and therapies. Oxygen supplementation to be continued to maintain pulse oxygen 92% or greater. Supportive therapy, plan of management and care plan. [place], [place] PROGRESS NOTE NAME: NATASHA FERRARO UNIT #: [id number] ROOM: 531 DOCTOR: FRANNIE MANJARREZ MD BIRTHDATE: [birth year] FRANNIE HIDALGO MD CM:PNTRANS 1202 [id number] FRANNIE JOAQUIN MD 01/09/18 0906 interface
--- NOTE | ~2017-12-26 | PR ---
[place], [place] PROGRESS NOTE NAME: NATASHA FERRARO UNIT #: [id number] ROOM: 531 DOCTOR: ROCKY JOAQUIN MD,FRANNIE BIRTHDATE: [birth year] DOS: 12/30/2017 SUBJECTIVE: He has noted comfortable at this time without any acute distress, resting comfortably in the bed, shows continued resolution and improvement of the respiratory symptom. The patient denies symptoms of chest pain or any hemoptysis. Coughing other symptoms have been improving progressively. OBJECTIVE: VITAL SIGNS: Normal temperature, respiratory rate 20, heart rate 82, blood pressure 144/79. The pulse oxygen saturation of the patient noted 4 liters nasal cannula 95% saturation. HEENT: Head was atraumatic. Eyes nonicterus. NECK: Supple. CARDIOVASCULAR: S1, S2 audible. LUNGS: The patient was noted without any wheezing or crackles today. ABDOMEN: Soft, nontender. EXTREMITIES: Without edema. LABORATORY DATA: CMP today: BUN 37, creatinine 2.40. Glucose 160. IMPRESSION: The patient with resolving acute pneumonia clinical radiologically with acute respiratory failure, improving as well.1. PLAN OF MANAGEMENT: No changes from the Pulmonary standpoint. Continue IV Rocephin is the only antibiotic. Levaquin was discontinued yesterday. Continue other supportive therapy, plan of management, care plan as in progress. Usual care. Other supportive plan of treatment and therapies. FRANNIE HIDALGO MD CM:PNTRANS [id number] FRANNIE JOAQUIN MD 01/09/18 0910 interface
--- NOTE | ~2017-12-26 | PR ---
[place], [place] PROGRESS NOTE NAME: NATASHA FERRARO UNIT #: [id number] ROOM: 531 DOCTOR: FIFI BURNETT MD BIRTHDATE: [birth year] DOS: 12/30/2017 SUBJECTIVE: The patient continues to improve and he is insisting on going home rather than going to rehabilitation. PHYSICAL EXAMINATION: GENERAL APPEARANCE: The patient is alert and oriented x 3, in no visible distress, generalized weakness. VITAL SIGNS: Blood pressure 133/83, heart rate 62 beats per minute, breathing 16 times per minute, temperature 98.5 degrees Fahrenheit. HEENT AND NECK: Exam within normal limits. CARDIOVASCULAR SYSTEM: Heart rate is regular in rate and rhythm. S1 and S2 normally audible. LUNGS: Clear to auscultation. ABDOMEN: Soft, nontender. No obvious organomegaly. Bowel sounds are present. EXTREMITIES: Without significant cyanosis or edema. IMPRESSION: 1. The patient with acute over chronic kidney failure with creatinine improving with treatment. Holding back NSAIDs, diuretics, ROBERT inhibitor and patient is being followed by Nephrology. 2. Advance adult failure to thrive. The patient is a good candidate for going to rehab half-way facility, but he is completely refusing. 3. Hypokalemia, to be treated with extra potassium supplements. 4. Bilateral pneumonia, sepsis, fever, tachycardia, elevated lactic acid levels all treated with antibiotics and improving. Dr. Pop is following. 5. Coronary artery disease of the [place] vessels without chest pains. 6. Chronic atrial fibrillation with controlled heart rates now. The patient anticoagulated with Eliquis. FIFI BURNETT MD CM:PNTRANS [id number] FIFI BURNETT MD 12/31/17 0033 interface
--- NOTE | ~2017-12-26 | PR ---
[place], [place] PROGRESS NOTE NAME: NATASHA [facility]ERRARO [facility] [id number] UNIT #: [id number] ROOM: 531 DOCTOR: SERA WRIGHT MD BIRTHDATE: [birth year] DOS: 12/30/2017 SUBJECTIVE: The patient was seen at his bedside with multiple family members present. He is a 52-year-old man who has a history of mitral valve endocarditis followed by mitral valve replacement. He believes that the valve was infected by a faulty PICC line. He presented to the hospital on this occasion with worsening dyspnea, fatigue and evidence for a right lower lobe pneumonia. He was in atrial fibrillation with a rapid ventricular response. He is on a direct oral anticoagulant for his atrial fibrillation despite the fact that he has a tissue mitral valve prosthesis because he is refused to take warfarin. In the hospital, he was treated for his pneumonia as well as his acute on chronic heart failure, ubybh-hd-rargnti renal failure and metabolic acidosis. He did improve dramatically in the hospital and is nearly ready for discharge. PHYSICAL EXAMINATION: VITAL SIGNS: Today, his pulse is 62 and irregularly irregular, blood pressure is 133/83. He is afebrile. NECK: Supple. He has no jugular distention. Carotids are full without bruits. LUNGS: Respirations are unlabored. His chest has decreased breath sounds at the bases. He has no wheezes or rales. HEART: Has an irregularly irregular rhythm without murmurs or gallops. ABDOMEN: Benign. EXTREMITIES: Showed no edema. LABORATORY DATA: Hemoglobin is 13.9, white count 6600. Sodium 139, potassium 3.3, chloride 103, CO2 31, BUN 37, creatinine 2.4, which is improved from 3.77 earlier in his hospitalization. At the time of this dictation, his medications include lisinopril 20 mg b.i.d., furosemide 40 mg b.i.d., atorvastatin 40 mg daily, metoprolol 100 mg b.i.d., isosorbide mononitrate 30 mg daily, clonidine 0.1 mg b.i.d., apixaban 5 mg b.i.d., digoxin 125 mcg daily along with his insulin and psychiatric medications. IMPRESSION: 1. Status post mitral valve replacement. 2. Permanent atrial fibrillation. 3. Cardiomyopathy. An echocardiogram done this admission showed normal left ventricular size with moderate concentric left ventricular hypertrophy and global hypokinesis, ejection fraction 40% along with normally functioning prosthetic mitral valve with estimated valve area of 1.4 cm2. He will be treated as an outpatient for his pneumonia. He has asked that we assume his cardiac care and I told him that I would be happy to see him in our office at [facility]. I thank Dr. Sharif for asking our advice regarding his care. [place], [place] PROGRESS NOTE NAME: NATASHA FERRARO UNIT #: [id number] ROOM: 531 DOCTOR: SERA WRIGHT MD BIRTHDATE: [birth year] SERA WRIGHT MD CM:PNTRANS 1422 SERA WRIGHT MD 12/31/17 0315 interface
--- NOTE | ~2017-12-26 | DS ---
[place], [place] DISCHARGE SUMMARY NAME: NATASHA FERRARO UNIT #: [id number] ROOM: 531 DOCTOR: FIFI BURNETT MD BIRTHDATE: [birth year] DOS: 01/01/2018 DISCHARGE DIAGNOSES: 1. Sepsis from pneumonia. 2. Acute hypoxemic respiratory failure and acute exacerbation of chronic obstructive pulmonary disease. 3. Acute over chronic kidney failure. 4. Cardiomyopathy with left ventricular ejection fraction of 40% on echocardiogram. 5. Coronary artery disease of the [place] vessels without chest pain. 6. Hypokalemia. 7. Chronic atrial fibrillation with rapid ventricular response. 8. Type 2 diabetes mellitus, uncontrolled, poor compliance with treatment. 9. Generalized anxiety disorder. 10. Poor compliance with treatment. 11. Chronic kidney disease stage 3b. 12. History of colostomy. The patient with poor compliance with treatment, presented to the Emergency Department with chest pains and was found to be in atrial fibrillation with rapid ventricular response and minimal elevation of troponin I levels. HOSPITAL COURSE: The patient was admitted. Cardiology were consulted and heart rate was controlled with medications including digoxin and Cardizem. The patient's heart rate is normalized now with present treatment. The patient was also quite hypertensive on admission, 175 systolic, 122 diastolic, and blood pressures were controlled after admission to the ICU. Sepsis apparently from bilateral pneumonia, which was treated with IV antibiotics in the ICU. He had a fever of 102 degrees Fahrenheit, considered to be septic. The patient has completely recovered and is being discharged home on oral Augmentin. The patient was ruled out for pulmonary embolism with DVT studies. The patient's systolic type congestive heart failure with left ventricular ejection fraction of 40%, on an echocardiogram repeated during this admission. Benign essential hypertension with elevated blood pressures, now controlled with present treatment. Major depression, recurrent, moderate, treated with venlafaxine and Cymbalta, also takes mirtazapine. Coronary artery disease of the [place] vessels with minimal elevation of cardiac enzymes secondary to tachycardia from atrial fibrillation. The patient was evaluated by Cardiology. LABORATORY DATA: Blood cultures are negative. No leukocytosis. Hemoglobin 13.2 and stable. Legionella antibodies were negative. Parathyroid hormone and vitamin D levels were normal. BUN and creatinine have returned to baseline, [place], [place] DISCHARGE SUMMARY NAME: NATASHA FERRARO UNIT #: [id number] ROOM: 531 DOCTOR: FIFI BURNETT MD BIRTHDATE: [birth year] which is 26 and 1.5. Discharge echocardiogram results as mentioned above. DISCHARGE MANAGEMENT: Lisinopril 40 mg a day, furosemide 80 mg a day, atorvastatin 40 mg a day, metoprolol 200 mg a day, clonidine 0.1 mg b.i.d., Imdur 30 mg a day, apixaban 5 mg b.i.d., digoxin 125 mcg daily, venlafaxine 75 mg a day, Cymbalta 30 mg a day, mirtazapine 45 mg at bedtime, gabapentin 900 mg 3 times a day, Lantus insulin 50 units daily, Augmentin 875 mg b.i.d. for 5 days, buspirone 10 mg b.i.d., Vicodin t.i.d. p.r.n. for pain, diazepam 10 mg p.r.n. for anxiety. Follow up with Dr. Sy at her office next week. One hour time spent on patient's discharge management. FIFI BURNETT MD CM:MEGHNA [id number] FIFI BURNETT MD 01/02/18 0202 interface
--- NOTE | ~2017-12-26 | PR ---
[place], [place] PROGRESS NOTE NAME: NATASHA FERRARO UNIT #: [id number] ROOM: 531 DOCTOR: FIFI BURNETT MD BIRTHDATE: [birth year] DOS: 12/29/2017 SUBJECTIVE: The patient continues to improve. OBJECTIVE: VITAL SIGNS: Blood pressure 128/88, heart rate 110 beats per minute, breathing 20 times per minute, temperature ranging from afebrile to 100.9 degrees Fahrenheit. GENERAL APPEARANCE: The patient is alert and oriented x 3, generalized weakness, in no visible distress. HEENT AND NECK: Exam within normal limits. CARDIOVASCULAR SYSTEM: Heart rate is regular in rate and rhythm. S1 and S2 normally audible. LUNGS: Clear to auscultation. ABDOMEN: Soft, nontender. No obvious organomegaly. Bowel sounds are present. EXTREMITIES: Without significant cyanosis or edema. IMPRESSION: 1. The patient has chronic atrial fibrillation with controlled heart rate now. The patient anticoagulated with Eliquis and he is on oral meds now, taking metoprolol, clonidine, digoxin. 2. Benign essential hypertension, treated and controlled. 3. Bilateral pneumonia, sepsis, fever, tachycardia, elevated lactic acid levels, all improved with treatment and antibiotics. Dr. Pop is following. 4. Advance adult failure to thrive. The patient to work with physical therapy. 5. Coronary artery disease of the [place] vessels without chest pains. 6. Acute over chronic kidney disease, now stage 4. The patient hydrated and BUN and creatinine are 41 and 3.15 today. FIFI BURNETT MD CM:PNTRANS 1304 [id number] FIFI BURNETT MD 12/30/17 0132 interface
--- NOTE | ~2017-12-26 | EKG ---
[place], [place] ELECTROCARDIOGRAM REPORT NAME: NATASHA FERRARO UNIT #: [id number] ROOM: [place] DOCTOR: TEOFILO DRAFT REPORT BIRTHDATE: [birth year] [facility] Test Date: 2017-12-26 Test Time: 10:39:22 Pat Name: NATASHA FERRARO Department: Room: Gender: [employer] Developer: [facility] : 1965 Requested By: JACK CORRAL Order Number: [id number] Reading MD: Cisco Frazier MD Measurements Intervals [place] Rate: 140 P: [place]: QRS: -108 QRSD: 117 T: 54 QT: 312 QTc: 476 Interpretive Statements Atrial fibrillation Ventricular premature complex or aberrant conduction RBBB and LAFB Electronically Signed On 12-26-2017 20:36:55 PDT by Cisco Frazier MD CM:EKGRPT:ELECTROCARDIOGRAM REPORT [id number] JACK RED DRAFT REPORT JACK CORRAL M.D.
--- NOTE | ~2017-12-26 | PR ---
[place], [place] PROGRESS NOTE NAME: [id number] UNIT #: [id number] ROOM: 531 DOCTOR: ROCKY OJAQUIN MD,FRANNIE BIRTHDATE: [birth year] DOS: 12/28/2017 SUBJECTIVE: The patient remains in Intensive Care Unit, noted awake and alert. Denies symptoms of chest pain or hemoptysis. The patient was still noted generalized weakness and fatigue. Denies symptoms of abdominal pain, nausea or vomiting. The patient does not have any symptoms of hemoptysis. The cough and sputum expectoration has been noted with gradual reduction. The patient denies any symptoms of pain of the lower extremities. Denies symptoms, headache. Denies any diplopia. The temperature curve was noted normal progress in the last 24 hours. OBJECTIVE: VITAL SIGNS: Shows blood pressure 118/58-122/80, heart rate is ranging between 64-74, respiratory 20-16, temperature highest of 102.4 degree Fahrenheit noted yesterday, currently noted normal temperature. HEENT: Examination shows head was atraumatic. Eyes nonicterus. NECK: Supple. CARDIOVASCULAR: S1, S2 audible. LUNGS: The patient noted decreased breath sounds in the lungs bilaterally. ABDOMEN: Soft, nontender. Bowel sounds present. EXTREMITIES: Without any acute edema. SKIN: No lesions or rashes. MUSCULOSKELETAL: Noted without any acute deformities. LABORATORY DATA: The CMP that was done this morning, glucose 232, BUN 39, creatinine 3.77. Albumin of 2.2. AST 47. Urine culture, no bacterial growth. Blood cultures showed no bacterial growth since admission. Echocardiogram that was done yesterday was noted with a left ventricle ejection fraction about 40%. IMPRESSION: 1. The patient with acute pneumonia noted in the right side. 2. The patient with sepsis, which seemed to be better. 3. Possible intravascular volume depletion, acute tubular necrosis or other reasons remains in consideration. The creatinine has been noted significant increased after a rather since the last 48 hours. 5. Atrial fibrillation, currently noted in control range, heart rate less than 100. 6. Cardiomyopathy. PLAN OF MANAGEMENT: Consultation with the Nephrology services will be requested. Continue bronchodilator adjustment in antibiotic according to the kidney functions and GFR. Other supportive therapy, plan of management. Continue use of the BiPAP as needed with the use of the oxygen supplementation at that time to maintain pulse oxygen 90%. Continue to monitor culture results. Usual care, other supportive plan of therapy and plan of care. [place], [place] PROGRESS NOTE NAME: NATASHA FERRARO UNIT #: [id number] ROOM: 531 DOCTOR: ROCKY JOAQUIN MD,FRANNIE BIRTHDATE: [birth year] FRANNIE HIDALGO MD CM:PNTRANS 1434 01 FRANNIE JOAQUIN MD 01/09/18 0904 interface
--- NOTE | ~2017-12-26 | PR ---
[place], [place] PROGRESS NOTE NAME: NATASHA FERRARO UNIT #: [id number] ROOM: 531 DOCTOR: PRUDENCE CASTELLANOS DO BIRTHDATE: [birth year] DOS: 12/31/2017 SUBJECTIVE: The patient was seen and evaluated. He was resting comfortably in bed, in no acute distress. He continued to deny any sputum production. He states that the shortness of breath is improving. He denies any lightheadedness, chest pain, nausea, vomiting, hemoptysis or any other symptoms. OBJECTIVE: VITAL SIGNS: Temperature 97.4, heart rate 55, respirations 18, blood pressure 143/73, pulse ox 92% on 4 liters nasal cannula. He was noted with a pulse ox of 91% on room air earlier this morning. HEENT: Scab lesion of left eye. Eyes nonicteric. NECK: Supple. CARDIOVASCULAR: S1, S2 audible. LUNGS: Clear. No wheezing or crackles. ABDOMEN: Soft, nontender, nondistended. Bowel sounds present. EXTREMITIES: No edema. LABORATORY DATA: CMP today, sodium 141, potassium 3.9, chloride 101, CO2 of 33, BUN 28, creatinine 1.98. His renal function is approximately back to his baseline. AST 61, ALT 57, alkaline phosphatase 395. Albumin 2.4. Vitamin D 33.3. PTH 68.5. ASSESSMENT: 1. Acute pneumonia that is resolving. 2. Respiratory failure that is also resolving. 3. Acute on chronic renal failure that is improved. 4. Atrial fibrillation that is now controlled. PLAN OF MANAGEMENT: Currently only on IV Rocephin. Oxygen supplementation is being used as needed. Titrate oxygen therapy. He is stable for discharge from a pulmonary standpoint. Continue other supportive therapies. Prudence Castellanos DO [place], [place] PROGRESS NOTE NAME: NATASHA FERRARO UNIT #: [id number] ROOM: 531 DOCTOR: PRUDENCE CASTELLANOS DO BIRTHDATE: [birth year] FRANNIE HIDALGO MD CM:PNCAMILLA [phone] PRUDENCE CASTELLANOS DO 01/01/18 0554 interface
--- NOTE | ~2017-12-26 | EKG ---
[place], [place] ELECTROCARDIOGRAM REPORT NAME: NATASHA FERRARO UNIT #: [id number] ROOM: [facility] DOCTOR: TEOFILO DRAFT REPORT BIRTHDATE: [birth year] [facility] Test Date: 2017-12-26 Test Time: 16:28:44 Pat Name: NATASHA FERRARO Department: Room: Gender: [employer]ded [employer] Developer: : 1965 Requested By: JACK CORRAL Order Number: [id number] Reading MD: Cisco Frazier MD Measurements Intervals [place] Rate: 152 P: [place]: QRS: -116 QRSD: 115 T: 41 QT: 278 QTc: 442 Interpretive Statements Atrial fibrillation Frequent PVCs or aberrantly conducted beats RBBB and LAFB ST elevation, consider lateral injury No change from earlier ECG this date. Electronically Signed On 12-26-2017 20:44:32 PDT by Cisco Frazier MD CM:EKGRPT:ELECTROCARDIOGRAM REPORT 43 JACK RED DRAFT REPORT JACK CORRAL M.D.
--- NOTE | ~2017-12-26 | PR ---
[place], [place] PROGRESS NOTE NAME: NATASHA FERRARO UNIT #: [id number] ROOM: 531 DOCTOR: FIFI BURNETT MD BIRTHDATE: [birth year] DOS: 12/31/2017 SUBJECTIVE: The patient continues to feel better, is getting stronger. OBJECTIVE: VITAL SIGNS: Blood pressure 150/93, heart rate of 62 beats per minute, breathing 20 times per minute, temperature 98 degrees Fahrenheit. GENERAL APPEARANCE: The patient is alert and oriented x 3, in no visible distress. Generalized weakness. HEENT AND NECK: Exam within normal limits. CARDIOVASCULAR SYSTEM: Heart rate is regular in rate and rhythm. S1 and S2 normally audible. LUNGS: Clear to auscultation. ABDOMEN: Soft, nontender. No obvious organomegaly. Bowel sounds are present. EXTREMITIES: Without significant cyanosis or edema. IMPRESSION: 1. The patient in atrial fibrillation with rapid ventricular response, heart rate has improved and is well controlled with present treatment. 2. Acute on chronic kidney disease with elevation of creatinine, is resolving. Creatinine has improved to 1.98, returning towards baseline. 3. Cardiomyopathy with left ventricular ejection fraction of only 40% as seen on the echocardiogram. The patient is euvolemic now. 4. Coronary artery disease of [place] vessels without chest pain. 5. Bilateral pneumonia, sepsis, fever, tachycardia, all resolved including lactic acid levels. 6. Hypokalemia, improved with extra potassium supplements. 7. Acute kidney failure, now being supported by holding back his nephrotoxic medications including NSAIDs. FIFI BURNETT MD CM:PNTRANS [id number] FIFI BURNETT MD 01/01/18 0623 interface
[~2017-12-26 10:35] MED LIST changes: +POLYSPORIN OINT15 GM T
[2017-12-26 10:52] LABS: BASO # 0.1 10*3/uL (0.0-0.1); BASO % 0.9 % (0.0-1.0); EOS % 0.2 % (1.0-4.0); HEMATOCRIT 47.2 % (42.0-52.0); HEMOGLOBIN 15.2 g/dl (14.0-18.0); LYMPH # 0.8 10*3/uL (1.3-4.4); LYMPH % 8.7 % (27.0-41.0); MEAN CELL VOLUME 87.6 fl (80.0-94.0); MEAN CORPUSCULAR HGB 28.2 pg (27.0-31.0); MEAN CORPUSCULAR HGB CONC 32.2 g/dl (33.0-37.0); MEAN PLATELET VOLUME 10.5 fl (9.6-12.3); MONO # 1.1 10*3/uL (0.1-1.0); MONO % 12.1 % (3.0-9.0); NEUT # 6.9 10*3/uL (2.3-7.9); NEUT % 77.8 % (47.0-73.0); PLATELET COUNT AUTOMATED 120 10*3/uL (130-400); RED BLOOD COUNT 5.39 10*6/uL (4.50-5.90); RED CELL DISTRI WIDTH 13.8 % (0-14.5); WHITE BLOOD COUNT 8.9 10*3/uL (4.8-10.8)
[2017-12-26 11:08] LABS: ALBUMIN 3.2 gm/dl (3.1-4.5); CREATININE 1.98 mg/dL (0.70-1.30); POTASSIUM 3.9 mmol/L (3.5-5.1); TOTAL PROTEIN 7.8 gm/dL (6.4-8.2)
[2017-12-26 11:09] LABS: ACT PARTIAL THROMBO TIME 23.5 SECONDS (20.8-31.5); INTERNATIONAL NORM RATIO 1.2 (2.0-3.5)
[2017-12-26 11:12] LABS: TROPONIN I 0.232 ng/ml (<0.045)
[2017-12-26] MEDS ORDERED: BUSPAR5 MG PO (14:19)
[2017-12-26] MEDS ORDERED: CYMBALTA30 MG PO (14:20)
[2017-12-26] MEDS ORDERED: ZOCOR20 MG PO (14:22)
[2017-12-26] MEDS ORDERED: BASAG SOL SC (14:24)
[2017-12-26] MEDS ORDERED: ISOSORBIDE DINI30 MG PO (14:26)
[2017-12-26] MEDS ORDERED: METOPROLOL SUC100 M1 PO (14:33)
[2017-12-26] MEDS ORDERED: EFFEXOR XR75 MG PO (14:37)
[2017-12-26] MEDS ORDERED: MIRTAZAPINE45 MG PO (14:38)
[2017-12-26 17:43] LABS: ABG BASE EXCESS -3.7 mmol/L (-2.0-2.0); ABG HCO3 18.1 mmol/l (22-26); ABG O2 SATURATION 87.7 % (95-97); ARTERIAL BLOOD GAS PCO2 29.5 mmHg (35-45); ARTERIAL BLOOD GAS PH 7.416 (7.35-7.45)
[2017-12-27] VITALS (12 sets, daily range): BP systolic 88–148; BP diastolic 44–84
[2017-12-27 02:21] LABS: BILIRUBIN NEGATIVE (NEGATIVE); BLOOD 2+ (NEGATIVE); CLARITY CLEAR (CLEAR); COLOR YELLOW (YELLOW); GLUCOSE 3+ (NEGATIVE); KETONE NEGATIVE (NEGATIVE); LEUKO ESTERASE NEGATIVE (NEGATIVE); NITRITE NEGATIVE (NEGATIVE); PH 5.5 (5.0-9.0); UROBILINOGEN 0.2 E.U./dl (0.2-1.0)
[2017-12-27 02:28] LABS: BACTERIA 1+; EPITHELIAL CELLS 0-2; RBC 0-2 rbc/hpf (0-2)
[2017-12-27 07:00] LABS: BASO # 0.1 10*3/uL (0.0-0.1); BASO % 0.4 % (0.0-1.0); EOS % 0.1 % (1.0-4.0); HEMATOCRIT 44.1 % (42.0-52.0); HEMOGLOBIN 14.4 g/dl (14.0-18.0); LYMPH # 0.3 10*3/uL (1.3-4.4); LYMPH % 2.6 % (27.0-41.0); MEAN CELL VOLUME 86.5 fl (80.0-94.0); MEAN CORPUSCULAR HGB 28.2 pg (27.0-31.0); MEAN CORPUSCULAR HGB CONC 32.7 g/dl (33.0-37.0); MEAN PLATELET VOLUME 11.5 fl (9.6-12.3); MONO % 7.9 % (3.0-9.0); NEUT # 11.6 10*3/uL (2.3-7.9); NEUT % 88.2 % (47.0-73.0); PLATELET COUNT AUTOMATED 107 10*3/uL (130-400); RED CELL DISTRI WIDTH 13.7 % (0-14.5); WHITE BLOOD COUNT 13.2 10*3/uL (4.8-10.8)
[2017-12-27 08:19] LABS: ABG BASE EXCESS -1.4 mmol/L (-2.0-2.0); ABG HCO3 22.4 mmol/l (22-26); ABG O2 SATURATION 95.9 % (95-97); ARTERIAL BLOOD GAS PCO2 38.8 mmHg (35-45); ARTERIAL BLOOD GAS PH 7.386 (7.35-7.45)
[2017-12-28] VITALS: BP 104/60
[2017-12-28 04:00] VITALS: BP 102/80
[2017-12-28 05:51] LABS: BASO # 0.1 10*3/uL (0.0-0.1); BASO % 0.8 % (0.0-1.0); EOS # 0.1 10*3/uL (0.0-0.4); EOS % 1.7 % (1.0-4.0); HEMATOCRIT 41.9 % (42.0-52.0); HEMOGLOBIN 13.3 g/dl (14.0-18.0); LYMPH # 0.6 10*3/uL (1.3-4.4); LYMPH % 9.6 % (27.0-41.0); MEAN CELL VOLUME 89.1 fl (80.0-94.0); MEAN CORPUSCULAR HGB 28.3 pg (27.0-31.0); MEAN CORPUSCULAR HGB CONC 31.7 g/dl (33.0-37.0); MONO # 0.7 10*3/uL (0.1-1.0); NEUT # 4.5 10*3/uL (2.3-7.9); NEUT % 75.7 % (47.0-73.0); PLATELET COUNT AUTOMATED 87 10*3/uL (130-400); RED CELL DISTRI WIDTH 14.3 % (0-14.5); WHITE BLOOD COUNT 5.9 10*3/uL (4.8-10.8)
[2017-12-28 06:18] LABS: ALBUMIN 2.2 gm/dl (3.1-4.5)
[2017-12-28 06:34] LABS: CREATININE 3.77 mg/dL (0.70-1.30); TOTAL PROTEIN 6.1 gm/dL (6.4-8.2)
[2017-12-28 07:09] LABS: DIGOXIN 0.96 ng/ml (0.8-2.0)
[2017-12-28 07:54] VITALS: BP 122/80
[2017-12-28 12:00] VITALS: BP 132/80
[2017-12-28 16:00] VITALS: BP 112/81
[2017-12-28 20:00] VITALS: BP 120/90
[2017-12-29] VITALS (7 sets, daily range): BP systolic 128–170; BP diastolic 81–99
[2017-12-29 05:50] LABS: HEMATOCRIT 43.7 % (42.0-52.0); HEMOGLOBIN 13.9 g/dl (14.0-18.0); MEAN CELL VOLUME 87.9 fl (80.0-94.0); MEAN CORPUSCULAR HGB CONC 31.8 g/dl (33.0-37.0); MEAN PLATELET VOLUME 12.4 fl (9.6-12.3); PLATELET COUNT AUTOMATED 89 10*3/uL (130-400); RED BLOOD COUNT 4.97 10*6/uL (4.50-5.90); RED CELL DISTRI WIDTH 14.3 % (0-14.5); WHITE BLOOD COUNT 6.6 10*3/uL (4.8-10.8)
[2017-12-29 06:13] LABS: ALBUMIN 2.4 gm/dl (3.1-4.5); CREATININE 3.15 mg/dL (0.70-1.30); POTASSIUM 3.5 mmol/L (3.5-5.1); TOTAL PROTEIN 6.5 gm/dL (6.4-8.2)
[2017-12-29 06:26] LABS: ATYPICAL LYMPHS 1 % (0-0); BURR CELLS FEW; PLATELET SUFFICIENCY LOW (NORMAL); TOTAL CELLS COUNTED 100 #CELLS
[2017-12-30 06:27] LABS: ALBUMIN 2.2 gm/dl (3.1-4.5); CREATININE 2.4 mg/dL (0.70-1.30); POTASSIUM 3.3 mmol/L (3.5-5.1); TOTAL PROTEIN 6.2 gm/dL (6.4-8.2)
[2017-12-30 08:00] VITALS: BP 144/79
[2017-12-30 12:00] VITALS: BP 133/83
[2017-12-30 16:00] VITALS: BP 152/109
[2017-12-30 20:00] VITALS: BP 143/81
[2017-12-31] VITALS: BP 141/79
[2017-12-31 06:22] LABS: BASO # 0.1 10*3/uL (0.0-0.1); BASO % 1.3 % (0.0-1.0); EOS # 0.4 10*3/uL (0.0-0.4); EOS % 5.2 % (1.0-4.0); HEMATOCRIT 45.9 % (42.0-52.0); HEMOGLOBIN 14.1 g/dl (14.0-18.0); LYMPH # 1.8 10*3/uL (1.3-4.4); LYMPH % 25.3 % (27.0-41.0); MEAN CELL VOLUME 89.3 fl (80.0-94.0); MEAN CORPUSCULAR HGB 27.4 pg (27.0-31.0); MEAN CORPUSCULAR HGB CONC 30.7 g/dl (33.0-37.0); MEAN PLATELET VOLUME 11.3 fl (9.6-12.3); MONO # 1.4 10*3/uL (0.1-1.0); NEUT # 3.3 10*3/uL (2.3-7.9); NEUT % 47.2 % (47.0-73.0); PLATELET COUNT AUTOMATED 99 10*3/uL (130-400); RED BLOOD COUNT 5.14 10*6/uL (4.50-5.90); RED CELL DISTRI WIDTH 14.3 % (0-14.5)
[2017-12-31 06:51] LABS: ALBUMIN 2.4 gm/dl (3.1-4.5); CREATININE 1.98 mg/dL (0.70-1.30); PHOSPHOROUS 3.4 mg/dL (2.5-4.9); POTASSIUM 3.9 mmol/L (3.5-5.1); TOTAL PROTEIN 6.9 gm/dL (6.4-8.2)
[2017-12-31 07:32] LABS: VITAMIN D, 25-HYDROXY 33.3 ng/mL (30-100)
[2017-12-31 07:33] LABS: PTH INTACT 68.5 pg/mL (18.5-88.0)
[2017-12-31 08:00] VITALS: BP 143/73
[2017-12-31 12:00] VITALS: BP 150/93
[2017-12-31] MEDS ORDERED: AUGMENTIN XR 11 EACH PO (15:18)
[2017-12-31 16:00] VITALS: BP 155/94
[2017-12-31 20:00] VITALS: BP 142/85
[2018-01-01] VITALS: BP 157/85
[2018-01-01 06:26] LABS: BASO # 0.1 10*3/uL (0.0-0.1); BASO % 1.3 % (0.0-1.0); EOS # 0.5 10*3/uL (0.0-0.4); HEMATOCRIT 42.4 % (42.0-52.0); HEMOGLOBIN 13.2 g/dl (14.0-18.0); LYMPH # 1.3 10*3/uL (1.3-4.4); LYMPH % 13.7 % (27.0-41.0); MEAN CELL VOLUME 88.9 fl (80.0-94.0); MEAN CORPUSCULAR HGB 27.7 pg (27.0-31.0); MEAN CORPUSCULAR HGB CONC 31.1 g/dl (33.0-37.0); MEAN PLATELET VOLUME 10.8 fl (9.6-12.3); MONO # 1.4 10*3/uL (0.1-1.0); MONO % 15.1 % (3.0-9.0); NEUT % 63.8 % (47.0-73.0); PLATELET COUNT AUTOMATED 106 10*3/uL (130-400); RED BLOOD COUNT 4.77 10*6/uL (4.50-5.90); RED CELL DISTRI WIDTH 14.2 % (0-14.5); WHITE BLOOD COUNT 9.4 10*3/uL (4.8-10.8)
[2018-01-01 07:00] LABS: ALBUMIN 2.4 gm/dl (3.1-4.5); CREATININE 1.56 mg/dL (0.70-1.30); PHOSPHOROUS 3.3 mg/dL (2.5-4.9); TOTAL PROTEIN 6.5 gm/dL (6.4-8.2)
[2018-01-01 07:06] LABS: POTASSIUM 3.2 mmol/L (3.5-5.1)
[2018-01-01 08:00] VITALS: BP 156/94
[2018-01-01 12:00] VITALS: BP 154/81
[2018-01-01 16:00] VITALS: BP 154/90
[2018-01-01] MEDS ORDERED: 'CLONIDINE0.1 MG PO (18:08)
== END 2018-01-01 19:19 | disposition home or self-care (01) | DRG 871 ==
LOC: ED 10:35 → ICCU 12:12 → 5E 12:12 → ICCU 12-29 12:50 → 5E 12-29 17:22
PROVIDERS: Emergency Medicine; Internal Medicine; Internal Medicine Cardiovascular Disease; Internal Medicine Critical Care Medicine; Internal Medicine Nephrology; Student in an Organized Health Care Education/Training Program
DX: A41.9 Sepsis, unspecified organism (principal); J96.01 Acute respiratory failure with hypoxia; I50.23 Acute on chronic systolic (congestive) heart failure; J18.1 Lobar pneumonia, unspecified organism; N18.4 Chronic kidney disease, stage 4 (severe); I42.9 Cardiomyopathy, unspecified; E11.22 Type 2 diabetes mellitus with diabetic chronic kidney disease; N17.9 Acute kidney failure, unspecified; I13.0 Hypertensive heart and chronic kidney disease with heart failure and stage 1 through stage 4 chronic kidney disease, or unspecified chronic kidney disease; F33.1 Major depressive disorder, recurrent, moderate; J44.1 Chronic obstructive pulmonary disease with (acute) exacerbation; J44.0 Chronic obstructive pulmonary disease with (acute) lower respiratory infection; R62.7 Adult failure to thrive; I48.2 Chronic atrial fibrillation; E87.6 Hypokalemia; F41.1 Generalized anxiety disorder; D64.9 Anemia, unspecified; E80.6 Other disorders of bilirubin metabolism; E78.5 Hyperlipidemia, unspecified; I25.2 Old myocardial infarction; Z82.49 Family history of ischemic heart disease and other diseases of the circulatory system; Z91.030 Bee allergy status; Z88.5 Allergy status to narcotic agent; Z88.7 Allergy status to serum and vaccine; Z91.018 Allergy to other foods; Z79.82 Long term (current) use of aspirin; Z79.899 Other long term (current) drug therapy; Z79.84 Long term (current) use of oral hypoglycemic drugs; Z87.01 Personal history of pneumonia (recurrent); Z87.440 Personal history of urinary (tract) infections; Z95.1 Presence of aortocoronary bypass graft; Z83.6 Family history of other diseases of the respiratory system; Z95.2 Presence of prosthetic heart valve; Z91.19 Patient's noncompliance with other medical treatment and regimen